=== PATIENT | female | born 1965 | race Caucasian/White ===

== ENCOUNTER 2017-01-10 08:47 | Inpatient (IN) | payer OTHER, SELFPAY ==
[2017-01-10] MEDS ORDERED: Water For Inject, Bacteriostat 0 ML ONE (08:54)
[2017-01-10] MEDS ORDERED: methylPREDNISolone Sod Succ/PF 125 MG/2 ML VIAL ONE (08:54)
[2017-01-10] MEDS ORDERED: Magnesium Sulfate 2 GM/100 ML BAG ONE (08:58)
[2017-01-10] MEDS ORDERED: Dexamethasone 4 mg/ml Vial ONE (08:58)
[2017-01-10 09:08] LABS: Oxyhemoglobin 95.1 % (94.0-97.0); Sodium 140 mmol/L (135-148)
[2017-01-10 09:10] LABS: #Basophils 0.1 thou/uL (0.0-0.2); #Eosinphils 0.5 thou/uL (0.0-0.7); #Lymphocytes 1.6 thou/uL (1.20-3.40); #Monocytes 0.5 thou/uL (0.11-0.59); #Neutrophils 4.1 thou/uL (1.40-6.50); %Basophils 0.7 % (0.0-1.0); %Eosinophils 7.8 % (0.0-10.0); %Lymphocytes 23.5 % (21.0-51.0); %Monocytes 7.6 % (0.0-10.0); Hematocrit 49.8 % (36.0-47.0); Mean Platelet Volume 8.6 fL (7.4-10.4); Red Blood Cell (RBC) Count 5.46 mill/uL (4.20-5.40); White Blood Cell (WBC) Count 6.8 thou/uL (4.8-10.8)
[2017-01-10 09:11] LABS: Mode BI-PAP; Pressure Support 6 cmH2O; Vent NO
[2017-01-10] MEDS ORDERED: Albuterol Sulfate 2.5 mg/0.5 ml Neb ONE (09:12)
[2017-01-10 09:17] LABS: PTT 26.9 SEC (22.9-36.1); Prothrombin Time 12.8 SEC (12.0-14.7)
[2017-01-10 09:30] LABS: ALT (SGPT) 10 U/L (8-55); AST (SGOT) 13 U/L (5-34); Alkaline Phosphatase 101 U/L (40-150); Anion Gap 14 mmol/L (10-20); BUN (Urea Nitrogen) 9 mg/dL (9.8-20.1); Bilirubin, Total 0.4 mg/dL (0.2-1.2); CK (CPK) 98 U/L (29-168); Calc. Creatinine Clearance 0 mL/min (70-130); Calcium 10.1 mg/dL (7.8-10.44); Carbon Dioxide 23 mmol/L (22-29); Chloride 104 mmol/L (98-107); Estimated GFR-MDRD 80; Globulin 3.5 g/dL (2.4-3.5); Lipase 24 U/L (8-78); Protein, Total 7.8 g/dL (6.0-8.3)
[2017-01-10] MEDS ORDERED: Lorazepam 2 MG/ML VIAL ONE (09:32)
[2017-01-10 09:33] LABS: Lactic Acid - Sepsis 1.5 mmol/L (0.5-2.2)
[2017-01-10 09:36] LABS: Troponin I Less than 0.010 ng/mL (< 0.028)
--- NOTE | 2017-01-10 09:37 | RAD ---
CHEST 1 VIEW: HISTORY: Dyspnea. COMPARISON: 09/18/16. FINDINGS: Cardiac silhouette is magnified by projection. Pulmonary vasculature is unremarkable. Calcified gr anulomata are consistent with healed granulomatous disease. Mediastinum is midline. There is no co nfluent airspace consolidation or evidence of pneumothorax. cafeteria monitor leads overlie the chest . IMPRESSION: No active cardiopulmonary abnormalities are demonstrated. POS: [facility]
[2017-01-10] MEDS ORDERED: Acetaminophen 325 MG TAB PO PRN (10:26)
[2017-01-10] MEDS ORDERED: Ondansetron HCl/PF 4 MG/2 ML Vial IVP PRN (10:26)
[2017-01-10] MEDS ORDERED: CCU Electrolyte Replacement 1 EACH IVPB ONE (10:26)
[2017-01-10] MEDS ORDERED: Bisacodyl 5 MG TAB PO PRN (10:26)
[2017-01-10] MEDS ORDERED: Potassium Chloride 40 MEQ in Premix Bag 1 BAG IVPB PRN (10:46)
[2017-01-10] MEDS ORDERED: Potassium Phosphate 9 MMOL in Sodium Chloride 0.9% 100 ML IVPB PRN (10:46)
[2017-01-10] MEDS ORDERED: Potassium Phosphate 12 MMOL in Sodium Chloride 0.9% 250 ML 250 ML IV PRN (10:46)
[2017-01-10] MEDS ORDERED: Magnesium 2 GM/NS 0.9% 100 ML 2 GM in Premix Bag 1 BAG IVPB PRN (10:46)
[2017-01-10] MEDS ORDERED: Potassium Chloride 40 MEQ in Sodium Chloride 0.9% 250 ML 250 ML IVPB PRN (10:46)
[2017-01-10] MEDS ORDERED: Magnesium Oxide 400 MG TAB PO PRN ×2 (10:46)
[2017-01-10] MEDS ORDERED: Potassium Phosphate 15 MMOL in Sodium Chloride 0.9% 250 ML 250 ML IV PRN (10:46)
[2017-01-10] MEDS ORDERED: CCU ELECTROLYTE REPLACEMENT PROTOCOL FS PRN (10:46)
[2017-01-10] MEDS ORDERED: Potassium Chloride 20 MEQ TAB PO PRN (10:46)
--- NOTE | 2017-01-10 11:19 | HP ---
PRIMARY CARE PROVIDER: Dr. Ana M Mcclendon. CHIEF COMPLAINT: Shortness of breath. HISTORY OF PRESENT ILLNESS: Ms. Yee is a pleasant 51-year-old lady who was seen at [facility] on 01/10/2017. She has a history of COPD. She reports progressively worseni ng shortness of breath, which started about 5 days ago. She reports cough that is productive of yel lowish to brown sputum. She also thinks she may have fevers, but is unsure. She denies any nausea, vomiting, or diarrhea. She reports chest tightness. She denies any headaches. She denies any sic k contacts. REVIEW OF SYSTEMS: The following complete review of systems was negative, unless otherwise mentione d in the HPI or below: Constitutional: Weight loss or gain, sense of well-being, ability to conduct usual activities, exer cise tolerance. Skin/Breast: Rash, itching, changes in hair growth or loss, nail changes, breast lumps, tenderness, swelling, nipple discharge. Eyes: Vision, double vision, tearing, blind spots, pain. ENT/Mouth: Headaches (location, time of onset, duration, precipitating factors), vertigo, lighthead edness, injury. Vision, double vision, tearing, blind spots, pain, nose bleeding, colds, obstruction , discharge, dental difficulties, gingival bleeding, dentures, neck stiffness, pain, tenderness, mas ses in thyroid or other areas. Cardiovascular: Precordial pain, substernal distress, palpitations, syncope, dyspnea on exertion, o rthopnea, nocturnal paroxysmal dyspnea, edema, cyanosis, hypertension, heart murmurs, varicosities, phlebitis, claudication. Respiratory: Pain, shortness of breath, wheezing, stridor, cough, hemoptysis, fever or night sweats . Gastrointestinal: Poor appetite, dysphagia, indigestion, abdominal pain, heartburn, eructation, lianna sea, vomiting, hematemesis, jaundice, constipation, or diarrhea, abnormal stools (lurdes-colored, kanchan y, bloody, greasy, foul smelling), flatulence, hemorrhoids, recent changes in bowel habits. Genitourinary: Urgency, frequency, dysuria, nocturia, hematuria, polyuria, oliguria, unusual (or ch aleshia in) color of urine, stones, hesitancy, change in size of stream, dribbling, acute retention or incontinence, libido, potency. Musculoskeletal: Pain, swelling, redness or heat of muscles or joints, limitation, of motion, muscu lar weakness, atrophy, cramps. Neurologic/Psychiatric: Convulsions, paralyses, tremor, incoordination, paresthesias, difficulties with memory of speech, sensory or motor disturbances, or muscular coordination (ataxia, tremor), emo tional problems, anxiety, depression, previous psychiatric care, unusual perceptions, hallucinations . Allergy/Immunologic: Skin rash, anemia, bleeding tendency, polydipsia, polyuria, intolerance to hea t or cold. 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 PAST SURGICAL HISTORY: Significant for aortobifemoral bypass graft in 07/2016. SOCIAL HISTORY: Patient smokes 1 pack of cigarettes a day. She drinks 3-4 beers on a daily basis. FAMILY HISTORY: She denies any family history of COPD. ALLERGIES: No known drug allergies. CURRENT MEDICATIONS: The patient does not recall the names of her medications. In the past, she wa s on aspirin, furosemide, Protonix, potassium chloride, Norvasc, Wellbutrin and tramadol. PHYSICAL EXAMINATION: GENERAL: Ms. Yee is awake and alert, in moderate respiratory distress. VITAL SIGNS: She has a blood pressure of 160/94, pulse 90, respiratory rate 22, and oxygen saturati on 100% on bilevel positive airway pressure. She is afebrile. EYES: No scleral icterus, no conjunctival pallor. ENT: Moist mucosal membranes, no oropharyngeal erythema or exudate. NECK: Supple, nontender, accessory muscles of breathing are active. Trachea is midline. No thyrom egaly. RESPIRATORY: Accessory muscles of breathing are active. Chest wall movements are symmetric bilater ally. Markedly diminished breath sounds at both bases. No wheezes, rhonchi or crepitations. CARDIOVASCULAR: S1, S2 are heard, regular. Peripheral pulses palpable. No carotid bruit, no peric ardial rub. ABDOMEN: Soft, nontender, bowel sounds heard, no hepatomegaly, no splenomegaly. NEUROLOGIC: Cranial nerves II through XII are intact. Deep tendon reflexes 2+. SKIN: No rashes or subcutaneous nodules. LYMPHATIC: No cervical lymphadenopathy. MUSCULOSKELETAL: Power is 5/5 in all 4 extremities, normal range of movement at all major extremity joints. PSYCHIATRIC: The patient appears anxious, oriented to person, place, and time. LABORATORY DATA AND IMAGING: Ms. Yee's labs and investigations were reviewed. I reviewed her electrocardiogram, which shows sinus tachycardia, no ST changes to suggest an acute coronary syndrom e. I also reviewed her chest x-ray, which does not show any pulmonary infiltrates. She has a shawn l white count, elevated hemoglobin of 16.2, normal platelet count, INR 1.0, normal electrolytes, no rmal creatinine, normal liver function tests, BNP of 27 and normal troponin I. Lactic acid is 1.5. Arterial blood gases show pH of 7.41, pCO2 of 38.6 and pO2 158.3. ASSESSMENT AND PLAN: Ms. Yee is a pleasant 51-year-old lady who was seen at [facility]. Her problem list includes: 1. Acute on chronic respiratory failure: Most likely secondary to chronic obstructive pulmonary di sease exacerbation. She will be admitted to the hospital to the IMCU unit. Pulmonology service has being consulted. 2. Chronic obstructive pulmonary disease exacerbation: She will be treated with oxygen, steroids, bronchodilators and antibiotics. 3. Tobacco abuse: Patient has been counseled regarding tobacco cessation. We will start her on ni cotine replacement therapy. 4. Alcohol abuse: Patient has been counseled regarding moderation of alcohol use. She will be sta rted on ASE protocol. 5. Polycythemia: Likely secondary to tobacco use. We will recheck her hemoglobin. I should note that her hemoglobin was normal to low in the past. 6. Hypertension: Once her home medications are clarified, she will be started on home medications. Vital signs will be checked and antihypertensives titrated as needed. 7. Peripheral vascular disease: Appears stable. Many thanks for allowing me to participate in your patient's care. Please feel free to contact me w ith any questions or concerns. LEVEL OF RISK: High. LEVEL OF COMPLEXITY: High.
[2017-01-10 11:22] LABS: Bilirubin Negative (Negative); Blood, Urine Negative (Negative); Glucose, Urine (Dipstick) Negative (Negative); Ketone, Urine Negative (Negative); Nitrite Negative (Negative); Protein, Urine (Dipstick) Negative (Neg-Trace); Urobilinogen 0.2 mg/dL (0.2-1.0)
[2017-01-10] MEDS ORDERED: FLU VACC QS2017-18 36 mo. & older 0.5 ML SYRINGE IM ONE (15:00)
--- NOTE | 2017-01-10 19:01 | CON ---
DATE OF CONSULTATION: 01/10/2017 HISTORY OF PRESENT ILLNESS: Linda Yee is a 51-year-old female with a history of chronic obstru ctive pulmonary disease. Her father has recently been sick with a cough and green sputum for 3 week s. She says several people that have come into store have claimed that they recently had walking pn eumonia. She reached a point where she could not speak in complete sentences, presented to the emergency room , was noninvasively ventilated. She says she is better but not back to her baseline but is also asking when she could go home. Unfo rtunately, she is still smoking. PAST MEDICAL HISTORY: 1. Remarkable for mesenteric ischemia. 2. History of an aortic occlusion below the renal artery with an aortobifemoral bypass as I recall in early 2016. SOCIAL HISTORY: She drinks 3-4 beers a day and smokes a pack a day. FAMILY HISTORY: Negative for lung disease at an early age. ALLERGIES: She has no reported drug allergies. MEDICATIONS: She is supposed to be on aspirin, Lasix, Protonix, potassium, Norvasc, Wellbutrin, tra madol. She said when she feels well, she can walk as far as she wants without any shortness of breath. PHYSICAL EXAMINATION: GENERAL: She is in no distress. VITAL SIGNS: She is afebrile, heart rate is 99, respiratory rate is 22, oximetry is 93 on 2 liters, blood pressure 97/60. HEAD AND NECK: Unremarkable. LUNGS: Remarkable for diffuse wheezes with a prolonged expiratory phase, speaking in full sentence now. HEART: Regular rhythm. ABDOMEN: Soft and nontender. EXTREMITIES: Without asymmetry. LABORATORY DATA: White count 6.8, hemoglobin 16.2, platelets 200,000. Electrolytes are normal. IMPRESSION: Chronic obstructive pulmonary disease exacerbation. PLAN: Steroids, nebulizer treatments, p.o. antibiotics would be reasonable.
[2017-01-10] MEDS: Nicotine 21 MG PATCH TD SCH (20:27)
[2017-01-11 06:04] LABS: Band 13 % (5-11); Hematocrit 44.5 % (36.0-47.0); Mean Platelet Volume 9.1 fL (7.4-10.4); Neutrophil 85 % (42-75); Red Blood Cell (RBC) Count 4.84 mill/uL (4.20-5.40); White Blood Cell (WBC) Count 16.7 thou/uL (4.8-10.8)
[2017-01-11 06:10] LABS: Anion Gap 12 mmol/L (10-20); BUN (Urea Nitrogen) 13 mg/dL (9.8-20.1); Calc. Creatinine Clearance 59 mL/min (70-130); Calcium 9.5 mg/dL (7.8-10.44); Carbon Dioxide 24 mmol/L (22-29); Chloride 106 mmol/L (98-107); Estimated GFR-MDRD 73
[2017-01-11] MEDS: Enoxaparin Sodium 40 MG/0.4 ML SYRINGE SC SCH (08:15)
--- NOTE | 2017-01-11 10:38 | PDOC.PN ---
- Subjective Encounter Start Date: 01/11/17 Encounter Start Time: 07:40 Pt seen for followup re: acute on chronic respiratory failure. Feels better. No chest pain. Dyspnea is better. No nausea or vomiting. - Objective MAR Reviewed: Yes Vital Signs & Weight: Vital Signs (12 hours) Temp Pulse Resp BP BP Pulse Ox 01/11/17 10:16 93 16 01/11/17 08:00 98.0 F 91 22 H 113/52 L 96 01/11/17 07:50 98.0 F 83 16 98 01/11/17 06:44 98 01/11/17 06:43 83 16 01/11/17 04:15 95 01/11/17 04:00 98.0 F 77 16 97/46 L 97/46 L 100 01/11/17 00:00 85 18 110/69 110/69 94 L 01/10/17 22:51 96 Weight Weight 103 lb 6.4 oz I&O: 01/10/17 01/11/17 01/12/17 06:59 06:59 06:59 Intake Total 1360 Output Total 1100 Balance 260 Result Diagrams: 01/11/17 05:01 01/11/17 05:01 EKG Reviewed by me: Yes (Tele: sinus tachycardia) Phys Exam - Physical Examination Constitutional: NAD HEENT: moist MMs, oral pharynx no lesions Neck: supple Respiratory: no wheezing, no rales, no rhonchi, clear to auscultation bilateral Diminished air entry sabi bases Cardiovascular: RRR, no rub Gastrointestinal: soft, positive bowel sounds Musculoskeletal: pulses present Neurological: non-focal, moves all 4 limbs Lymphatic: no nodes Psychiatric: normal affect, A&O x 3 Skin: no rash, normal turgor, cap refill <2 seconds Dx/Plan (1) Acute and chronic respiratory failure Code(s): J96.20 - ACUTE AND CHR RESP FAILURE, UNSP W HYPOXIA OR HYPERCAPNIA Status: Acute (2) COPD exacerbation Code(s): J44.1 - CHRONIC OBSTRUCTIVE PULMONARY DISEASE W (ACUTE) EXACERBATION Status: Acute (3) Dyslipidemia Code(s): E78.5 - HYPERLIPIDEMIA, UNSPECIFIED Status: Chronic (4) Hypertension Code(s): I10 - ESSENTIAL (PRIMARY) HYPERTENSION Status: Chronic (5) Tobacco abuse Code(s): Z72.0 - TOBACCO USE Status: Chronic - Plan continue antibiotics, PT/OT, out of bed/ambulate, DVT proph w/lovenox * . Pt on O2 by nasal cannula. Continue steroids, bronchodilators. Change antibiotics to oral. Monitor vital signs and titrate antihypertensives as needed. Continue nicotine replacement therapy. Review of Systems - Review of Systems Constitutional: negative: Fever, Chills, Sweats, Weakness, Malaise Respiratory: Cough, SOB with Excertion. negative: Dry, Shortness of Breath, Hemoptysis, Pleuritic Pain, Sputum, Wheezing Cardiovascular: negative: Chest Pain, Palpitations, Orthopnea, Paroxysmal Noc. Dyspnea, Edema, Light Headedness Gastrointestinal: negative: Nausea, Vomiting, Abdominal Pain, Diarrhea, Constipation, Melena, Hematochezia Genitourinary: negative: Dysuria, Frequency, Incontinence, Hematuria, Retention - Medications/Allergies Allergies/Adverse Reactions: Allergies Allergy/AdvReac Type Severity Reaction Status Date / Time cyclobenzaprine AdvReac Verified 01/10/17 12:28 [facility] Medications: Current Medications Acetaminophen (Tylenol) 650 mg PO Q4H PRN PRN Reason: Headache/Fever or Pain Albuterol/Ipratropium (Duoneb) 3 ml NEB [id number] PRN PRN Reason: SOB &/or Wheezing Albuterol/Ipratropium (Duoneb) 3 ml NEB [id number] [facility] Last Admin: 01/11/17 10:16 Dose: 3 ml Bisacodyl (Dulcolax) 10 mg PO DAILYPRN PRN PRN Reason: Constipation Enoxaparin Sodium (Lovenox) 40 mg SC 0900 [facility] Last Admin: 01/11/17 08:15 Dose: Not Given Potassium Chloride 40 meq/ (Sodium Chloride) 270 mls @ 135 mls/hr IVPB ASDIR PRN PRN Reason: FOR SERUM K+ 2.5 - 3.5 Potassium Chloride 40 meq/ (Device) 100 mls @ 50 mls/hr IVPB ASDIR PRN PRN Reason: FOR SERUM K+ 2.5 - 3.5 Magnesium Sulfate 1 gm/ Sodium (Chloride) 102 mls @ 102 mls/hr IV PRN PRN PRN Reason: MAG LEVEL 1.4 - 2.0 Magnesium Sulfate 2 gm/ Device 100 mls @ 100 mls/hr IVPB ASDIR PRN PRN Reason: MAGNESIUM < 1.4 Potassium Phosphate 9 mmol/ (Sodium Chloride) 103 mls @ 25.75 mls/hr IVPB ASDIR PRN PRN Reason: Phosphate 1.0-1.8 Potassium Phosphate 12 mmol/ (Sodium Chloride) 254 mls @ 63.5 mls/hr IV ASDIR PRN PRN Reason: Serum phosphate 0.5-0.9 Potassium Phosphate 15 mmol/ (Sodium Chloride) 255 mls @ 63.75 mls/hr IV ASDIR PRN PRN Reason: Serum Phos < 0.5 Levofloxacin (Levaquin) 750 mg PO 0600 [facility] Magnesium Oxide (Magnesium Oxide) 400 mg PO BIDPRN PRN PRN Reason: FOR SERUM MAG 1.4 - 2.0 Magnesium Oxide (Magnesium Oxide) 800 mg PO PRN PRN PRN Reason: FOR SERUM MAG < 1.4 Methylprednisolone Sodium Succinate (Solu-Medrol) 40 mg IVP Q6HR [facility] Last Admin: 01/11/17 05:39 Dose: 40 mg Miscellaneous Medication (Phos-Nak) 1 pkt PO TIDPRN PRN PRN Reason: FOR PHOS LEVEL 1.0 - 1.8 Miscellaneous Medication (Phos-Nak) 2 pkt PO TIDPRN PRN PRN Reason: FOR PHOS LEVEL 0.5 - 1.0 Nicotine (Nicoderm Patch) 21 mg TD Q24HR [facility] Last Admin: 01/10/17 20:27 Dose: Not Given Ccu Electrolyte (Replacement Protocol) 0 each FS PRN PRN PRN Reason: FOR ELECTROLYTE REPLACEMENT Ondansetron HCl (Zofran) 4 mg IVP Q6H PRN PRN Reason: Nausea/Vomiting Potassium Chloride (K-Dur) 40 meq PO ASDIR PRN PRN Reason: FOR SERUM K+ 2.5 - 3.5 Potassium Chloride (Klor-Con) 40 meq PER TUBE ASDIR PRN PRN Reason: FOR SERUM K+ 2.5-3.5
--- NOTE | 2017-01-11 16:53 | PRG ---
DATE OF SERVICE: 01/11/2017 SUBJECTIVE: Linda Yee feels much better today. She is approaching her baseline. OBJECTIVE: VITAL SIGNS: She is afebrile, heart rate in the 80s, respiratory rate 17, oximetry is 96 on 2 liter s, blood pressure 100/52. LUNGS: Clear. HEART: Regular rhythm. ABDOMEN: Soft. LABORATORY DATA: White count 16.7, hemoglobin 14.3, platelets 185. Electrolytes are normal. IMPRESSION: Chronic obstructive pulmonary disease/reactive airways exacerbation. She is stable to be switched to p.o. antimicrobial therapy and her IV steroid dose has been decreased. She can move to a medical bed. She will see Dr. Sifuentes in the morning as she has seen in the past.
[2017-01-11] MEDS: Nicotine 21 MG PATCH TD SCH (19:52)
[2017-01-12 05:06] LABS: #Lymphocytes 0.4 thou/uL (1.20-3.40); #Monocytes 0.3 thou/uL (0.11-0.59); #Neutrophils 13.3 thou/uL (1.40-6.50); %Basophils 0.1 % (0.0-1.0); %Eosinophils 0.1 % (0.0-10.0); %Lymphocytes 3.2 % (21.0-51.0); %Monocytes 2.1 % (0.0-10.0); Hematocrit 44.6 % (36.0-47.0); Mean Platelet Volume 9.5 fL (7.4-10.4); Red Blood Cell (RBC) Count 4.84 mill/uL (4.20-5.40)
[2017-01-12 05:16] LABS: Anion Gap 12 mmol/L (10-20); BUN (Urea Nitrogen) 12 mg/dL (9.8-20.1); Calc. Creatinine Clearance 70 mL/min (70-130); Calcium 9.7 mg/dL (7.8-10.44); Carbon Dioxide 22 mmol/L (22-29); Chloride 107 mmol/L (98-107); Estimated GFR-MDRD 89
[2017-01-12 05:28] VITALS: BMI 20.5
[2017-01-12] MEDS: Enoxaparin Sodium 40 MG/0.4 ML SYRINGE SC SCH (08:12)
--- NOTE | 2017-01-12 10:44 | PDOC.PN ---
- Subjective Encounter Start Date: 01/12/17 Encounter Start Time: 07:20 Pt seen for followup re: COPD exacerbation. Says she feels better. Still has cough, sputum, no chest pain. SOBOE+. - Objective MAR Reviewed: Yes Vital Signs & Weight: Vital Signs (12 hours) Temp Pulse Resp BP BP Pulse Ox 01/12/17 09:38 91 16 94 L 01/12/17 08:00 98.1 F 98 20 113/72 94 L 01/12/17 06:39 85 16 94 L 01/12/17 04:00 97.8 F 88 20 129/74 96 01/12/17 03:37 116/68 01/12/17 02:55 94 L 01/12/17 00:00 98.3 F 84 18 113/66 95 Weight Weight 101 lb 11.011 oz I&O: 01/11/17 01/12/17 01/13/17 06:59 06:59 06:59 Intake Total 1360 300 Output Total 1100 Balance 260 300 Result Diagrams: 01/12/17 03:59 01/12/17 03:59 Phys Exam - Physical Examination Constitutional: NAD HEENT: moist MMs Neck: supple Respiratory: clear to auscultation bilateral Cardiovascular: RRR, no rub Gastrointestinal: soft, positive bowel sounds Musculoskeletal: pulses present Psychiatric: normal affect Dx/Plan (1) COPD exacerbation Code(s): J44.1 - CHRONIC OBSTRUCTIVE PULMONARY DISEASE W (ACUTE) EXACERBATION Status: Acute (2) Dyslipidemia Code(s): E78.5 - HYPERLIPIDEMIA, UNSPECIFIED Status: Chronic (3) Hypertension Code(s): I10 - ESSENTIAL (PRIMARY) HYPERTENSION Status: Chronic (4) Tobacco abuse Code(s): Z72.0 - TOBACCO USE Status: Chronic (5) Acute and chronic respiratory failure Code(s): J96.20 - ACUTE AND CHR RESP FAILURE, UNSP W HYPOXIA OR HYPERCAPNIA Status: Resolved - Plan continue antibiotics, DVT proph w/lovenox * . Continue steroids, antibiotics, bronchodilators, O2 PRN (not needing oxygen at this time). Ambulate pt. Continue nicotine replacement therapy. Review of Systems - Review of Systems Constitutional: negative: Fever, Chills, Sweats, Weakness, Malaise Respiratory: Cough, SOB with Excertion, Sputum. negative: Dry, Shortness of Breath, Hemoptysis, Pleuritic Pain, Wheezing Cardiovascular: negative: Chest Pain, Palpitations, Orthopnea, Paroxysmal Noc. Dyspnea, Edema, Light Headedness Gastrointestinal: negative: Nausea, Vomiting, Abdominal Pain, Diarrhea, Constipation, Melena, Hematochezia - Medications/Allergies Allergies/Adverse Reactions: Allergies Allergy/AdvReac Type Severity Reaction Status Date / Time cyclobenzaprine AdvReac Verified 01/10/17 12:28 [facility] Medications: Current Medications Acetaminophen (Tylenol) 650 mg PO Q4H PRN PRN Reason: Headache/Fever or Pain Albuterol/Ipratropium (Duoneb) 3 ml NEB [id number] PRN PRN Reason: SOB &/or Wheezing Albuterol/Ipratropium (Duoneb) 3 ml NEB [id number] [facility] Last Admin: 01/12/17 09:38 Dose: 3 ml Bisacodyl (Dulcolax) 10 mg PO DAILYPRN PRN PRN Reason: Constipation Enoxaparin Sodium (Lovenox) 40 mg SC 0900 [facility] Last Admin: 01/12/17 08:12 Dose: Not Given Potassium Chloride 40 meq/ (Sodium Chloride) 270 mls @ 135 mls/hr IVPB ASDIR PRN PRN Reason: FOR SERUM K+ 2.5 - 3.5 Potassium Chloride 40 meq/ (Device) 100 mls @ 50 mls/hr IVPB ASDIR PRN PRN Reason: FOR SERUM K+ 2.5 - 3.5 Magnesium Sulfate 1 gm/ Sodium (Chloride) 102 mls @ 102 mls/hr IV PRN PRN PRN Reason: MAG LEVEL 1.4 - 2.0 Magnesium Sulfate 2 gm/ Device 100 mls @ 100 mls/hr IVPB ASDIR PRN PRN Reason: MAGNESIUM < 1.4 Potassium Phosphate 9 mmol/ (Sodium Chloride) 103 mls @ 25.75 mls/hr IVPB ASDIR PRN PRN Reason: Phosphate 1.0-1.8 Potassium Phosphate 12 mmol/ (Sodium Chloride) 254 mls @ 63.5 mls/hr IV ASDIR PRN PRN Reason: Serum phosphate 0.5-0.9 Potassium Phosphate 15 mmol/ (Sodium Chloride) 255 mls @ 63.75 mls/hr IV ASDIR PRN PRN Reason: Serum Phos < 0.5 Levofloxacin (Levaquin) 750 mg PO 0600 [facility] Last Admin: 01/12/17 06:12 Dose: 750 mg Magnesium Oxide (Magnesium Oxide) 400 mg PO BIDPRN PRN PRN Reason: FOR SERUM MAG 1.4 - 2.0 Magnesium Oxide (Magnesium Oxide) 800 mg PO PRN PRN PRN Reason: FOR SERUM MAG < 1.4 Methylprednisolone Sodium Succinate (Solu-Medrol) 20 mg IVP Q6HR [facility] Last Admin: 01/12/17 06:12 Dose: 20 mg Miscellaneous Medication (Phos-Nak) 1 pkt PO TIDPRN PRN PRN Reason: FOR PHOS LEVEL 1.0 - 1.8 Miscellaneous Medication (Phos-Nak) 2 pkt PO TIDPRN PRN PRN Reason: FOR PHOS LEVEL 0.5 - 1.0 Nicotine (Nicoderm Patch) 21 mg TD Q24HR [facility] Last Admin: 01/11/17 19:52 Dose: Not Given Ccu Electrolyte (Replacement Protocol) 0 each FS PRN PRN PRN Reason: FOR ELECTROLYTE REPLACEMENT Ondansetron HCl (Zofran) 4 mg IVP Q6H PRN PRN Reason: Nausea/Vomiting Potassium Chloride (K-Dur) 40 meq PO ASDIR PRN PRN Reason: FOR SERUM K+ 2.5 - 3.5 Potassium Chloride (Klor-Con) 40 meq PER TUBE ASDIR PRN PRN Reason: FOR SERUM K+ 2.5-3.5
[2017-01-12] MEDS ORDERED: methylPREDNISolone 4 mg Tablet PO SCH ×2 (15:45→17:00)
--- NOTE | 2017-01-12 17:39 | PRG ---
DATE OF SERVICE: 01/12/2017 SERVICE: Pulmonary Medicine. INTERVAL HISTORY: The patient is doing great from a cardiovascular and respiratory standpoint. She denies any current fevers, chills, nausea, vomiting or shortness of breath. She has essentially re turned to her usual state of health. She is requesting for discharge today. She has multiple home issues that she needs to get back and attend to. She says that the shortness of breath that brought her here has significantly improved and is nearing baseline. PHYSICAL EXAMINATION: VITAL SIGNS: Afebrile, pulse 83, blood pressure 128/87, respirations 16, saturation 96% on room air . GENERAL: The patient is awake and alert, in no apparent distress. LUNGS: Excellent air entry. There is minimally prolonged expiratory phase. I do not appreciate an y wheezing, rhonchi or crackles. HEART: Normal rate, regular. ABDOMEN: Soft, nontender, nondistended, bowel sounds positive. MUSCULOSKELETAL: No cyanosis or clubbing. No pitting in the bilateral lower extremities. NEUROLOGIC: Grossly nonfocal. LABORATORY DATA: WBC 14.0 and down trending, hemoglobin 14.4, platelets 165,000. INR 1.0, pH 7.41, pCO2 of 38. Basic metabolic profile is completely unremarkable. Influenza A and B is unremarkable . Blood cultures x2 are negative. Urine cultures negative at 48 hours. ASSESSMENT: 1. Chronic obstructive pulmonary disease with acute exacerbation. 2. Acute hypoxic respiratory failure, resolved. 3. Tobacco abuse, ongoing. PLAN: I have spent 5 minutes, discussing the merits of continued efforts at quitting smoking. I am going to have her return to clinic to see me in the outpatient setting. At this point, however, cecilia brennan is stable for transition out of the hospital. She needs a complete 5 days of antibiotics and 7 da ys of p.o. steroids. If she remains in house, I will continue to follow, but hopefully she will be able to go home today.
[2017-01-12 18:13] VITALS: BP 121/79; TEMP 98.2
--- NOTE | 2017-01-12 20:12 | DIS ---
DATE OF ADMISSION: 01/10/2017 DATE OF DISCHARGE: 01/12/2017 PRIMARY CARE PHYSICIAN: Ana M Mcclendon MD DISCHARGE DIAGNOSES: 1. Acute on chronic respiratory failure, resolved. 2. Chronic obstructive pulmonary disease exacerbation, improved. CONDITION OF PATIENT AT THE TIME OF DISCHARGE: Stable. I assessed Ms. Yee on the day of discharge. Please refer to my daily hospitalist's progress note for further information of this [id number] en counter. DISCHARGE MEDICATIONS: Levofloxacin 750 mg daily for 3 more days, nicotine 21 mg patch daily, Medro l Dosepak, Atrovent nebulizers p.r.n., aspirin 325 mg daily. HOSPITAL COURSE: Ms. Yee is a pleasant 51-year-old lady who was admitted to [facility] on 01/12/2017 for acute on chronic respiratory failure secondary to chronic obstruct nicholas pulmonary disease exacerbation. She was initially treated with bilevel positive airway pressure and managed in the intermediate care unit. She improved clinically and was transferred to the [facility] floor. She was seen by Pulmonology Service during this hospitalization. She is being discharge d home in a stable condition. LABORATORY DATA: On the day of discharge, Ms. Yee has a white count of 14,000, hemoglobin 14.4 , platelet count 165,000, normal electrolytes and normal creatinine. Many thanks for allowing me to participate in your patient's care. Please feel free to contact me w ith any questions or concerns. DISCHARGE DESTINATION: Home. TOTAL AMOUNT OF TIME SPENT COORDINATING THIS DISCHARGE: Thirty-three minutes. ADDENDUM Ms. Yee is being discharged home on DuoNeb 3 mL q.6 hours p.r.n. and not on ipratropium nebuliz ers.
--- NOTE | 2017-01-13 06:41 | EKG ---
Test Reason : SOB Blood Pressure : / mmHG Vent. Rate : 103 BPM Atrial Rate : 103 BPM P-R Int : 140 ms QRS Dur : 060 ms QT Int : 312 ms P-R-T Axes : 077 078 059 degrees QTc Int : 408 ms Sinus tachycardia Biatrial enlargement Septal infarct , age undetermined Abnormal ECG Confirmed by ANGEL MARY, CRISPIN ([id number]), make up editor MARCK GROVES ([id number]) on 01/13/2017 6:41:06 AM Referred By: Confirmed By:CRISPIN ORTIZ MD
[2017-01-13] MEDS ORDERED: predniSONE 20 MG TAB PO SCH (08:00)
[2017-01-13] MEDS ORDERED: methylPREDNISolone 4 mg Tablet PO SCH ×2 (08:00→21:00)
[2017-01-14] MEDS ORDERED: methylPREDNISolone 4 mg Tablet PO SCH (08:00)
[2017-01-15] MEDS ORDERED: methylPREDNISolone 4 mg Tablet PO SCH (08:00)
[2017-01-16] MEDS ORDERED: methylPREDNISolone 4 mg Tablet PO SCH (08:00)
[2017-01-17] MEDS ORDERED: methylPREDNISolone 4 mg Tablet PO SCH (08:00)
== END 2017-01-12 18:12 | disposition home or self-care (01) | DRG 190 ==
LOC: ERS 08:47 → IMCU/EMU 12:16 → T4-B 01-11 17:28
PROVIDERS: ADMIT Emergency Medicine; ATTEND Internal Medicine
PROC: 5A09357 Assistance with Respiratory Ventilation, Less than 24 Consecutive Hours, Continuous Positive Airway Pressure (ICD-10-PCS; principal; 2017-01-10)
DX: J44.1 Chronic obstructive pulmonary disease with (acute) exacerbation (principal); J96.21 Acute and chronic respiratory failure with hypoxia; F17.210 Nicotine dependence, cigarettes, uncomplicated; D75.1 Secondary polycythemia; I10 Essential (primary) hypertension; I73.9 Peripheral vascular disease, unspecified; Z95.828 Presence of other vascular implants and grafts; Z23 Encounter for immunization; F10.10 Alcohol abuse, uncomplicated; E78.5 Hyperlipidemia, unspecified
CPT/HCPCS: 36415; 71010; 80048; 80053; 81003; 82553; 82805; 83605; 83690; 83880; 84484; 85025; 85610; 85730; 87040; 87086; 93005; 94640; 94644; 94660; 96361; 96365; 96366; 96375; J1100; J1650; J1956; J2060; J2920; J2930; J3475; J7611; J7620

== ENCOUNTER 2017-04-07 16:56 | Emergency (ER) | payer OTHER ==
--- NOTE | 2017-04-07 18:44 | RAD ---
RADIOGRAPH CHEST 2 VIEWS: 04/07/17 HISTORY: 51-year-old female with cough and dyspnea. FINDINGS: There is no air space density, pulmonary edema, pleural effusion, pneumothorax, or cardiomegaly. Ther e is a levoscoliosis of the lumbar spine, and a mild compensatory dextroscoliosis of the thoracic spi ne. IMPRESSION: 1. No acute cardiopulmonary findings. 2. Mild S-shaped scoliosis. shilpa [] POS: [facility]
== END 2017-04-07 22:03 | disposition left against medical advice (07) ==
LOC: ERS 16:56
DX: Z53.21 Procedure and treatment not carried out due to patient leaving prior to being seen by health care provider (principal); J44.9 Chronic obstructive pulmonary disease, unspecified; F17.210 Nicotine dependence, cigarettes, uncomplicated
CPT/HCPCS: 71046; 94640; J7620

== ENCOUNTER 2017-05-11 19:57 | Inpatient (IN) | payer OTHER, SELFPAY ==
[2017-05-11] MEDS ORDERED: Dexamethasone 10 MG/ML VIAL ONE (20:17)
[2017-05-11] MEDS ORDERED: Lorazepam 2 MG/ML VIAL ONE (20:17)
[2017-05-11] MEDS ORDERED: Albuterol Sulfate 2.5 mg/3 ml Neb ONE (20:22)
[2017-05-11 20:26] LABS: #Basophils 0.1 thou/uL (0.0-0.2); #Eosinphils 0.3 thou/uL (0.0-0.7); #Lymphocytes 1.2 thou/uL (1.20-3.40); #Monocytes 0.9 thou/uL (0.11-0.59); #Neutrophils 7.1 thou/uL (1.40-6.50); %Basophils 0.7 % (0.0-1.0); %Eosinophils 2.7 % (0.0-10.0); %Lymphocytes 12.1 % (21.0-51.0); %Monocytes 9.4 % (0.0-10.0); %Neutrophils 75.1 % (42.0-75.0); Hemoglobin 15.3 g/dL (12.0-16.0); Mean Corpuscular HGB CONC 33.4 g/dL (32.0-36.0); Mean Corpuscular Hemoglobin 30.4 pg (27.0-31.0); Mean Platelet Volume 9.2 fL (7.4-10.4); Platelet Count 202 thou/uL (130-400); RBC Distribution Width 13.4 % (11.5-14.5); Red Blood Cell (RBC) Count 5.02 mill/uL (4.20-5.40); White Blood Cell (WBC) Count 9.5 thou/uL (4.8-10.8)
[2017-05-11 20:34] LABS: INR-International Normal Ratio 0.9; PTT 28.6 SEC (22.9-36.1); Prothrombin Time 12.7 SEC (12.0-14.7)
[2017-05-11 20:48] LABS: ALT (SGPT) 11 U/L (8-55); AST (SGOT) 19 U/L (5-34); Albumin 4.7 g/dL (3.5-5.0); Alkaline Phosphatase 118 U/L (40-150); Anion Gap 15 mmol/L (10-20); BUN (Urea Nitrogen) 6 mg/dL (9.8-20.1); Bilirubin, Total 0.2 mg/dL (0.2-1.2); CK (CPK) 129 U/L (29-168); Calc. Creatinine Clearance 0 mL/min (70-130); Carbon Dioxide 25 mmol/L (22-29); Chloride 103 mmol/L (98-107); Estimated GFR-MDRD 75; Globulin 3.4 g/dL (2.4-3.5); Glucose 96 mg/dL (70-105); Lipase 15 U/L (8-78); Protein, Total 8.1 g/dL (6.0-8.3); Sodium 139 mmol/L (136-145)
[2017-05-11 20:52] LABS: CKMB 2.3 ng/mL (0-6.6); Troponin I 0.011 ng/mL (< 0.028)
[2017-05-11 20:55] LABS: pH, Arterial 7.28 (7.35-7.45)
[2017-05-11 20:56] LABS: CO2 Tension 60.2 mmHg (35.0-45.0)
[2017-05-11 20:57] LABS: Actual Bicarbonate (HCO3a) 27.7 mEq/L (22-26); Base Excess (BEa) -0.4 mEq/L (0 (+/-) 2.5); Hematocrit-ABG 45.7 % (36.0-47.0); O2 Tension (PaO2) 38.3 mmHg (80.0-100.0)
[2017-05-11 20:58] LABS: Analyzer IN Cardio ER; Calcium, Ionized 1.2 mmol/L (1.12-1.30); Puncture Site RRA
[2017-05-11] MEDS ORDERED: Magnesium 2 GM/NS 0.9% 100 ML 2 GM in Premix Bag 1 BAG IVPB SCH (21:45)
--- NOTE | 2017-05-11 21:58 | RAD ---
PORTABLE CHEST: History: Chest pain Comparison: 01-10-17 FINDINGS: Lungs are clear. Heart and mediastinum unremarkable. Vascular markings normal. IMPRESSION: No acute finding. POS: [facility]
[2017-05-11 22:55] LABS: Bilirubin Negative (Negative); Blood, Urine Negative (Negative); Clarity CLEAR (Clear); Glucose, Urine (Dipstick) Negative (Negative); Leukocyte Negative (Negative); Nitrite Negative (Negative); Protein, Urine (Dipstick) Negative (Neg-Trace); Specific Gravity, Urine 1.013 (1.002-1.036); Urobilinogen 0.2 mg/dL (0.2-1.0)
[2017-05-12] MEDS ORDERED: Acetaminophen 325 MG TAB PO PRN (01:07)
[2017-05-12] MEDS ORDERED: Senokot 8.6 MG TAB PO PRN (01:07)
[2017-05-12] MEDS ORDERED: Guaifenesin DM 100-10/5 ML UDCUP PO PRN (01:07)
[2017-05-12 02:29] VITALS: BMI 21.0
--- NOTE | 2017-05-12 02:37 | HP ---
REASON FOR ADMISSION: Acute respiratory failure with hypoxia and hypercarbia and chronic obstructive pulmonary disease exacerbation. HISTORY OF PRESENT ILLNESS: The patient gives history of going to her parents place to celebrate their birthday. This was on Thursday. She got exposed to cold, as she was outside. She felt feverish and started to have shortness of breath. This has been gradually getting worse. Despite all this, she went to work yesterday morning. Her shortness of breath got worse and patient finally made it to the emergency room. Has expectoration of cough with dark yellow sputum. The patient says she normally uses her nebulizer twice daily. She has taken a flu shot for this year. The patient admits to smoking 1 pack a day and abusing marijuana as well. PAST MEDICAL AND SURGICAL HISTORY: History of COPD and follows up with Dr. Sifuentes, dyslipidemia, back surgery, peripheral vascular disease with fem-pop in 07/2016, bowel resection due to obstruction. CURRENT MEDICATIONS: The patient does not recall any of the exact names of her medications, but knows she takes baby aspirin, a cholesterol medication, an inhaler, and nebulizer. We will try to ascertain the names of these medications in the morning. ALLERGIES: She is allergic to FLEXERIL. PERSONAL HISTORY: Smokes 1 pack per day, abuses marijuana and drinks on social occasions. 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 FAMILY HISTORY: Both parents are living and are cancer survivors. Mother has had history of lymph node cancer and father has prostate cancer. REVIEW OF SYSTEMS: The following complete review of systems was negative, unless otherwise mentioned in the HPI or below: Constitutional: Weight loss or gain, ability to conduct usual activities. Skin: Rash, itching. Eyes: Double vision, pain. ENT/Mouth: Nose bleeding, neck stiffness, pain, tenderness. Cardiovascular: Palpitations, dyspnea on exertion, orthopnea. Respiratory: Shortness of breath, wheezing, cough, hemoptysis, fever, or night sweats. Gastrointestinal: Poor appetite, abdominal pain, heartburn, nausea, vomiting, constipation, or diarrhea. Genitourinary: Urgency, frequency, dysuria, nocturia. Musculoskeletal: Pain, swelling. Neurologic/Psychiatric: Anxiety, depression. Allergy/Immunologic: Skin rash, bleeding tendency. PHYSICAL EXAMINATION: GENERAL: The patient is a 51-year-old female, who is currently on BiPAP and is comfortable. VITAL SIGNS: Blood pressure on arrival 165/84, pulse 120 per minute, respiratory rate 28 per minute, temperature 99.2 degrees Fahrenheit, saturating 88% on room air and currently 100% on BiPAP. NECK: Supple, no elevated JVD. HEENT: Extraocular muscles intact. Pupils reacting to light. Oral cavity, mucous membranes are moist. No exudates or congestion. CARDIOVASCULAR SYSTEM: S1, S2 heard. Regular rhythm. RESPIRATORY SYSTEM: Air entry 1+ bilateral. Scattered wheezes plus bilateral. ABDOMEN: Soft. Bowel sounds heard. No tenderness, rigidity, or guarding. EXTREMITIES: No peripheral edema or calf tenderness. VASCULAR SYSTEM: Peripheral pulses 2+ bilateral, no ischemic ulcerations or gangrene. CENTRAL NERVOUS SYSTEM: No gross focal deficits seen. Patient is alert, awake , and oriented well. PSYCHIATRIC SYSTEM: The patient's mood is a bit anxious, otherwise no hallucinations or delusions. LABORATORY AND X-RAY FINDINGS: White count of 9, H and H 15 and 45, platelet count 202 with 75% neutrophils. PT, INR, PTT within normal limits. Blood gas done shows a pH of 7.28, PCO2 of 60, pO2 of 38 with a bicarbonate of 27. Electrolytes are stable. BUN 6, creatinine 0.8, serum glucose 96. Liver enzymes within normal limits. First set of cardiac enzymes are negative. BNP is 17. Lipase is 15, albumin is 4.7. Influenzae A and B antigens are negative. Chest x-ray done shows no acute infiltrate. EKG shows sinus tachycardia at 117 beats per minute. CLINICAL IMPRESSION AND PLAN: Patient will be admitted to [facility] for acute respiratory failure with hypercarbia and hypoxia, acute on chronic obstructive pulmonary disease exacerbation. She will be placed on Solu-Medrol 40 mg IV q.6 hourly, DuoNeb q.6 hourly, and empiric Levaquin. We will also continue her aspirin, nicotine patch 21 mg transdermal, and gentle hydration with normal saline at 50 mL per hour. We will consult Dr. Sifuentes, her web assistant. We will obtain a viral PCR as well to rule out viral infection preceding her chronic obstructive pulmonary disease flare-up. Patient was counseled with regarding her smoking abuse and marijuana abuse as well. Please note I have seen and examined patient on 05/11/2017. FORD
[2017-05-12 02:59] LABS: Amphetamine Not Detected (NotDetected); Barbiturates Screen Not Detected (NotDetected); Benzodiazepine Screen Not Detected (NotDetected); Cocaine Metabolite Screen Not Detected (NotDetected); Medtox Control Line Valid? VALID (VALID); Medtox Reader # READER 4; Methadone Not Detected (NotDetected); Methamphetamine Not Detected (NotDetected); Opiate Screen Detected (NotDetected); Oxycodone Screen Not Detected (NotDetected); Phencyclidine (PCP) Not Detected (NotDetected); THC/Cannabinoid Screen Detected (NotDetected); Tricyclic Screen Not Detected (NotDetected)
[2017-05-12] MEDS: Sodium Chloride 0.9% 1,000 ML IV SCH ×2 (04:54→21:14)
[2017-05-12] MEDS: Nicotine 21 MG PATCH TD SCH (04:54)
[2017-05-12 05:44] LABS: Anion Gap 12 mmol/L (10-20); BUN (Urea Nitrogen) 6 mg/dL (9.8-20.1); Calc. Creatinine Clearance 75 mL/min (70-130); Calcium 9.2 mg/dL (7.8-10.44); Carbon Dioxide 24 mmol/L (22-29); Chloride 106 mmol/L (98-107); Estimated GFR-MDRD Greater than 90; Glucose 145 mg/dL (70-105); Potassium 4.3 mmol/L (3.5-5.1); Sodium 138 mmol/L (136-145)
[2017-05-12 06:08] LABS: #Basophils 0.1 thou/uL (0.0-0.2); #Lymphocytes 0.3 thou/uL (1.20-3.40); #Neutrophils 4.5 thou/uL (1.40-6.50); %Eosinophils 0.1 % (0.0-10.0); %Lymphocytes 6.3 % (21.0-51.0); %Monocytes 0.7 % (0.0-10.0); %Neutrophils 91.9 % (42.0-75.0); Hemoglobin 13.5 g/dL (12.0-16.0); Mean Corpuscular HGB CONC 31.4 g/dL (32.0-36.0); Mean Corpuscular Hemoglobin 28.7 pg (27.0-31.0); Mean Corpuscular Volume 91.4 fl (81.0-99.0); Mean Platelet Volume 9.6 fL (7.4-10.4); PLT Morphology Comment Appears Adequate; Platelet Count 165 thou/uL (130-400); RBC Distribution Width 13.1 % (11.5-14.5); RBC Morphology Normal; Red Blood Cell (RBC) Count 4.71 mill/uL (4.20-5.40); White Blood Cell (WBC) Count 4.9 thou/uL (4.8-10.8)
[2017-05-12] MEDS: Enoxaparin Sodium 40 MG/0.4 ML SYRINGE SC SCH ×2 (08:32→08:36)
[2017-05-12] MEDS: Aspirin 325 MG TAB PO SCH (08:32)
[2017-05-12] MEDS: Famotidine 20 MG TAB PO SCH ×3 (08:32→21:03)
--- NOTE | 2017-05-12 17:59 | PDOC.PN ---
- Subjective Encounter Start Date: 05/12/17 Encounter Start Time: 10:20 Pt seen for followup re: acute respiratory failure. Reports cough, shortness of breath. No fevers. - Objective Resuscitation Status: Resuscitation Status FULL:Full Resuscitation MAR Reviewed: Yes Vital Signs & Weight: Vital Signs (12 hours) Temp Pulse Resp BP Pulse Ox 05/12/17 15:05 98.9 F 99 18 123/66 95 05/12/17 12:32 96 05/12/17 12:15 100 22 H 97 05/12/17 11:05 98.0 F 87 16 121/63 98 05/12/17 08:00 97.8 F 100 18 100 05/12/17 07:20 97.8 F 100 18 122/62 97 05/12/17 06:46 80 16 98 Weight Weight 104 lb 4.8 oz I&O: 05/11/17 05/12/17 05/13/17 06:59 06:59 06:59 Intake Total 400 Output Total 1050 Balance -650 Result Diagrams: 05/12/17 04:45 05/12/17 04:45 EKG Reviewed by me: Yes (Tele: NSR) Phys Exam - Physical Examination Constitutional: NAD HEENT: PERRLA, moist MMs, sclera anicteric, oral pharynx no lesions Neck: no nodes, no JVD, supple, full ROM Respiratory: wheezing present Diffuse expiratory wheeze over all lung napoles Cardiovascular: RRR, no rub Gastrointestinal: soft, non-tender, no distention, positive bowel sounds Neurological: moves all 4 limbs Psychiatric: A&O x 3 Deviation from normal: appears anxious Dx/Plan (1) Acute and chronic respiratory failure ([id number]) Code(s): J96.20 - ACUTE AND CHR RESP FAILURE, UNSP W HYPOXIA OR HYPERCAPNIA Status: Acute Qualifiers: Respiratory failure complication: hypoxia and hypercapnia Qualified Code(s) : J96.21 - Acute and chronic respiratory failure with hypoxia; J96.22 - Acute and chronic respiratory failure with hypercapnia; J96.22 - Acute and chronic respiratory failure with hypercapnia; J96.22 - Acute and chronic respiratory failure with hypercapnia (2) COPD exacerbation Code(s): J44.1 - CHRONIC OBSTRUCTIVE PULMONARY DISEASE W (ACUTE) EXACERBATION Status: Acute (3) Acute bronchitis due to Rhinovirus Code(s): J20.6 - ACUTE BRONCHITIS DUE TO RHINOVIRUS Status: Acute (4) Dyslipidemia Code(s): E78.5 - HYPERLIPIDEMIA, UNSPECIFIED Status: Chronic (5) Hypertension Code(s): I10 - ESSENTIAL (PRIMARY) HYPERTENSION Status: Chronic (6) Tobacco abuse Code(s): Z72.0 - TOBACCO USE Status: Chronic - Plan continue antibiotics, out of bed/ambulate * . Pt was treated with BiPAP. Continue oxygen, steroids, bronchodilators and antibiotics. Monitor vital signs and titrate antihypertensives as needed. Nicotine replacement therapy. Review of Systems - Review of Systems Constitutional: other. negative: fever, chills, sweats, weakness, malaise Respiratory: Cough, Shortness of Breath, SOB with Excertion, Sputum. negative: Dry, Hemoptysis, Pleuritic Pain, Wheezing Cardiovascular: negative: chest pain, palpitations, orthopnea, paroxysmal nocturnal dyspnea, edema, light headedness Gastrointestinal: negative: Nausea, Vomiting, Abdominal Pain, Diarrhea, Constipation, Melena, Hematochezia Genitourinary: negative: Dysuria, Frequency, Incontinence, Hematuria, Retention - Medications/Allergies Allergies/Adverse Reactions: Allergies Allergy/AdvReac Type Severity Reaction Status Date / Time cyclobenzaprine AdvReac Verified 05/12/17 02:35 [[facility] Medications: Current Medications Acetaminophen (Tylenol) 650 mg PO Q4H PRN PRN Reason: Headache/Fever or Pain Albuterol/Ipratropium (Duoneb) 3 ml NEB [id number] Last Admin: 05/12/17 16:57 Dose: Not Given Aspirin (Aspirin) 325 mg PO QAM-WM [facility] Last Admin: 05/12/17 08:32 Dose: 325 mg Enoxaparin Sodium (Lovenox) 40 mg SC 0900 [facility] Last Admin: 05/12/17 08:36 Dose: Not Given Famotidine (Pepcid) 20 mg PO BID [facility] Last Admin: 05/12/17 08:36 Dose: Not Given Guaifenesin/Dextromethorphan (Robitussin Dm) 15 ml PO Q4H PRN PRN Reason: Cough Levofloxacin 750 mg/ Device 150 mls @ 100 mls/hr IVPB 2100 [facility] Sodium Chloride (Normal Saline 0.9%) 1,000 mls @ 50 mls/hr IV .Q20H [facility] Last Admin: 05/12/17 04:54 Dose: 1,000 mls Methylprednisolone Sodium Succinate (Solu-Medrol) 40 mg IVP Q6HR [facility] Last Admin: 05/12/17 17:26 Dose: 40 mg Nicotine (Nicoderm Patch) 21 mg TD Q24HR [facility] Last Admin: 05/12/17 04:54 Dose: 21 mg Senna (Senokot) 2 tab PO HSPRN PRN PRN Reason: Constipation
--- NOTE | 2017-05-13 01:11 | CON ---
DATE OF CONSULTATION: 05/12/2017 HISTORY OF PRESENT ILLNESS: Linda Yee is a 51-year-old female. She has been seen by my associa te, Dr. Sifuentes. She presents with complaints of several days of progressive shortness of breath on exertion and at re st. She actually worked through this and finally presented to the emergency room after work yesterday and was subsequently admitted. She has had some yellow sputum. She denies chest pain or hemoptysis. PAST MEDICAL HISTORY: 1. Remarkable for COPD. 2. Lipid disorder. 3. Back surgery. 4. Peripheral vascular disease with fem-pop bypass in 07/2016. 5. History of bowel obstruction leading to resection. SOCIAL HISTORY: She smokes for marijuana, smokes a pack a day. Drinks occasionally. 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 ALLERGIES: She has allergies to FLEXERIL. FAMILY HISTORY: Positive for cancer. REVIEW OF SYSTEMS: Twelve-point is otherwise negative. PHYSICAL EXAMINATION: GENERAL: She is in no distress. VITAL SIGNS: Afebrile, heart rate is 99, respiratory rate is 18, oximetry is 95 on 3 liters, and blo od pressure 123/66. HEENT: Pupils are equal. Sclerae is anicteric. NECK: Supple. LUNGS: Remarkable for diffuse coarse wheezes. HEART: Regular rhythm, no S3. ABDOMEN: Soft and nontender. EXTREMITIES: Without clubbing, cyanosis, or edema. LABORATORY DATA: White count 4.9, hemoglobin 13.5, platelets 165. Sodium 138, potassium 4.3, chlori de 106, bicarbonate 24, BUN 6, creatinine 0.65. Blood gas last night 7.28, CO2 of 60, pO2 of 38. Chest radiograph has been reviewed by me, I do not see any alveolar infiltrates. IMPRESSION: 1. Chronic obstructive pulmonary disease exacerbation. 2. Ongoing tobacco use. PLAN: Continue steroids, nebulizer treatments, and antibiotics. Her antibiotics can be switched to the enteral route tomorrow. Steroid dose, hopefully, can be decreased tomorrow. She can move out of the intermediate care unit. She no longer needs BiPAP, but we will need ongoing close observation, likely within the hospital se veral more days. This is 50 minutes consultation with 50% of the time was spent on the coordinating care and also inte rviewed all family members and they were in the room. They had a little to add to the above history.
[2017-05-13 04:32] LABS: #Lymphocytes 0.4 thou/uL (1.20-3.40); #Monocytes 0.2 thou/uL (0.11-0.59); #Neutrophils 8.6 thou/uL (1.40-6.50); %Eosinophils 0.2 % (0.0-10.0); %Lymphocytes 4.4 % (21.0-51.0); %Monocytes 2.4 % (0.0-10.0); Hemoglobin 13.5 g/dL (12.0-16.0); Mean Corpuscular HGB CONC 33.1 g/dL (32.0-36.0); Mean Corpuscular Hemoglobin 30.2 pg (27.0-31.0); Mean Corpuscular Volume 91.3 fl (81.0-99.0); Mean Platelet Volume 10.2 fL (7.4-10.4); Platelet Count 167 thou/uL (130-400); RBC Distribution Width 13.4 % (11.5-14.5); Red Blood Cell (RBC) Count 4.47 mill/uL (4.20-5.40); White Blood Cell (WBC) Count 9.2 thou/uL (4.8-10.8)
[2017-05-13 04:49] LABS: Anion Gap 12 mmol/L (10-20); BUN (Urea Nitrogen) 13 mg/dL (9.8-20.1); Calc. Creatinine Clearance 73 mL/min (70-130); Calcium 9.5 mg/dL (7.8-10.44); Carbon Dioxide 24 mmol/L (22-29); Chloride 107 mmol/L (98-107); Estimated GFR-MDRD Greater than 90; Glucose 147 mg/dL (70-105); Potassium 3.9 mmol/L (3.5-5.1); Sodium 139 mmol/L (136-145)
[2017-05-13] MEDS: Nicotine 21 MG PATCH TD SCH (05:20)
[2017-05-13] MEDS: Aspirin 325 MG TAB PO SCH (08:07)
[2017-05-13] MEDS: Famotidine 20 MG TAB PO SCH (08:08)
[2017-05-13] MEDS: Enoxaparin Sodium 40 MG/0.4 ML SYRINGE SC SCH (08:08)
--- NOTE | 2017-05-13 13:16 | PRG ---
DATE OF SERVICE: 05/13/2017 SERVICE: Pulmonary Medicine. INTERVAL HISTORY: The patient is doing great from a respiratory standpoint. She is breathing comfor tably and denies any current fevers, chills, nausea, or vomiting. Overnight, she had a dramatic impr ovement in her respiratory symptoms. Otherwise, there has been no interval change to her condition. Nurse reports no events. PHYSICAL EXAMINATION: VITAL SIGNS: Afebrile, pulse 94, blood pressure 121/62, respirations 16, saturation 95% on room air. GENERAL: The patient is awake, alert, in no apparent distress. LUNGS: Reduced air entry. There is a little bit of polyphonic wheezing. No crackles or rhonchi are appreciated. HEART: Normal rate, regular. ABDOMEN: Soft, nontender, nondistended. Bowel sounds are positive. MUSCULOSKELETAL: No cyanosis or clubbing. No pitting in the bilateral lower extremities. NEUROLOGIC: Grossly nonfocal. LABORATORY DATA: WBC 9.2, hemoglobin 13.5, platelets 167,000. Basic metabolic profile completely re arie unremarkable. Urinalysis is negative. Urine drug screen is positive for cannabinoids and opia yung. Respiratory virus panel is positive for rhinovirus. Blood cultures x2 and influenza is unremar kable. ASSESSMENT: 1. Acute hypoxic and hypercapnic respiratory failure, resolved. 2. Chronic obstructive pulmonary disease with acute exacerbation. 3. Tobacco abuse, ongoing. 4. Rhinovirus. DISCUSSION AND PLAN: The patient indicates that she has effectively returned to her usual state of h ealth. At this point, I do think it would be reasonable to transition her over to p.o. medication. If she remains stable, discharge her home. Pulmonary Critical Care will continue to follow if she re arie in-house.
--- NOTE | 2017-05-13 17:20 | PDOC.PN ---
- Subjective Encounter Start Date: 05/13/17 Encounter Start Time: 09:00 Pt seen for followup re: acute on chronic respiratory failure. feels better. Occ cough with clear sputum. No nausea or vomiting or diarrhea. - Objective Resuscitation Status: Resuscitation Status FULL:Full Resuscitation MAR Reviewed: Yes Vital Signs & Weight: Vital Signs (12 hours) Temp Pulse Resp BP Pulse Ox 05/13/17 16:00 97 05/13/17 13:58 91 18 93 L 05/13/17 11:45 98.0 F 94 16 121/62 95 05/13/17 11:00 94 16 95 05/13/17 08:31 98.3 F 93 16 116/71 91 L 05/13/17 08:00 97.9 F 94 18 93 L 05/13/17 06:59 98 05/13/17 06:58 94 18 98 Weight Weight 104 lb 4.8 oz I&O: 05/12/17 05/13/17 05/14/17 06:59 06:59 06:59 Intake Total 400 1830 Output Total 1050 850 Balance -650 980 Result Diagrams: 05/13/17 03:21 05/13/17 03:21 Phys Exam - Physical Examination Constitutional: NAD HEENT: moist MMs Neck: supple Respiratory: clear to auscultation bilateral Cardiovascular: RRR Gastrointestinal: soft Neurological: moves all 4 limbs Psychiatric: normal affect Dx/Plan (1) Acute and chronic respiratory failure ([id number]) Code(s): J96.20 - ACUTE AND CHR RESP FAILURE, UNSP W HYPOXIA OR HYPERCAPNIA Status: Acute Qualifiers: Respiratory failure complication: hypoxia and hypercapnia Qualified Code(s) : J96.21 - Acute and chronic respiratory failure with hypoxia; J96.22 - Acute and chronic respiratory failure with hypercapnia; J96.22 - Acute and chronic respiratory failure with hypercapnia; J96.22 - Acute and chronic respiratory failure with hypercapnia (2) COPD exacerbation Code(s): J44.1 - CHRONIC OBSTRUCTIVE PULMONARY DISEASE W (ACUTE) EXACERBATION Status: Acute (3) Acute bronchitis due to Rhinovirus Code(s): J20.6 - ACUTE BRONCHITIS DUE TO RHINOVIRUS Status: Acute (4) Dyslipidemia Code(s): E78.5 - HYPERLIPIDEMIA, UNSPECIFIED Status: Chronic (5) Hypertension Code(s): I10 - ESSENTIAL (PRIMARY) HYPERTENSION Status: Chronic (6) Tobacco abuse Code(s): Z72.0 - TOBACCO USE Status: Chronic - Plan continue antibiotics, out of bed/ambulate * . Continue oxygen, steroids, antibiotics and bronchodilators. Likely home 24-48 hrs. Review of Systems - Review of Systems Eyes: negative: Pain, Vision Change, Conjunctivae Inflammation, Eyelid Inflammation, Redness Respiratory: negative: Cough, Dry, Shortness of Breath, Hemoptysis, SOB with Excertion, Pleuritic Pain, Sputum, Wheezing Cardiovascular: negative: chest pain, palpitations, orthopnea, paroxysmal nocturnal dyspnea, edema, light headedness - Medications/Allergies Allergies/Adverse Reactions: Allergies Allergy/AdvReac Type Severity Reaction Status Date / Time cyclobenzaprine AdvReac Verified 05/12/17 02:35 [From Flexeril] Medications: Current Medications Acetaminophen (Tylenol) 650 mg PO Q4H PRN PRN Reason: Headache/Fever or Pain Albuterol/Ipratropium (Duoneb) 3 ml NEB [id number] [facility] Last Admin: 05/13/17 13:58 Dose: 3 ml Aspirin (Aspirin) 325 mg PO QAM-WM [facility] Last Admin: 05/13/17 08:07 Dose: 325 mg Enoxaparin Sodium (Lovenox) 40 mg SC 0900 [facility] Last Admin: 05/13/17 08:08 Dose: Not Given Levofloxacin (Levaquin) 750 mg PO 0600 [facility] Stop: 05/18/17 06:01 Nicotine (Nicoderm Patch) 21 mg TD Q24HR [facility] Last Admin: 05/13/17 05:20 Dose: 21 mg Prednisone (Prednisone) 40 mg PO DAILY [facility] Stop: 05/18/17 09:01 Senna (Senokot) 2 tab PO HSPRN PRN PRN Reason: Constipation
[2017-05-14] MEDS: Nicotine 21 MG PATCH TD SCH (05:12)
[2017-05-14] MEDS: Aspirin 325 MG TAB PO SCH (08:06)
[2017-05-14] MEDS: Enoxaparin Sodium 40 MG/0.4 ML SYRINGE SC SCH (08:42)
[2017-05-14] MEDS ORDERED: predniSONE 20 MG TAB PO SCH (09:00)
--- NOTE | 2017-05-14 11:09 | DIS ---
DATE OF ADMISSION: 05/12/2017 DATE OF DISCHARGE: 05/14/2017 PRIMARY CARE PHYSICIAN: Ana M Mcclendon M.D. DISCHARGE DIAGNOSES: 1. Acute on chronic respiratory failure. 2. Chronic obstructive pulmonary disease exacerbation. CONDITION OF PATIENT ON THE DAY OF DISCHARGE: Stable. I saw Ms. Yee on the day of discharge. She denies any chest pain or shortness of breath. Vital signs are stable. S1 and S2 are heard, regu lar. She has occasional expiratory wheeze. DISCHARGE MEDICATIONS: Levofloxacin 750 mg daily for 4 more days, prednisone 40 mg daily for 4 days, nicotine 21 mg patch daily, DuoNebs q.4 h. p.r.n., Lipitor 40 mg at bedtime, aspirin 325 mg daily. HOSPITAL COURSE: Ms. Yee is a pleasant 51-year-old lady who was admitted to IMCU at [facility] on 05/12/2017 for acute on chronic respiratory failure with hypercapnia and hy poxia. She was seen by the Pulmonology Service. She improved with oxygen, steroids, bronchodilators and antibiotics. She was subsequently transferred to the medical floor. She continued to improve a nd is being discharged home in a stable condition. Her influenza screen was negative during this hospitalization. On the day of discharge, she has whit e count 9200, hemoglobin 13.5, and platelet count 167,000. Normal electrolytes and normal creatinine . Many thanks for allowing me to participate in your patient's care. Please feel free to contact me wi th any questions or concerns. DISCHARGE DESTINATION: Home. TOTAL AMOUNT OF TIME SPENT COORDINATING THIS DISCHARGE: 32 minutes.
[2017-05-14 11:31] VITALS: BP 130/81; TEMP 97.6
--- NOTE | 2017-06-20 12:25 | EKG ---
Test Reason : SOB Blood Pressure : / mmHG Vent. Rate : 117 BPM Atrial Rate : 117 BPM P-R Int : 134 ms QRS Dur : 064 ms QT Int : 326 ms P-R-T Axes : 078 088 065 degrees QTc Int : 454 ms Sinus tachycardia Biatrial enlargement Septal infarct , age undetermined Abnormal ECG Confirmed by ANGEL MARY, CRISPIN ([id number]), technical editor ABNER BORJAS ([id number]) on 06/20/2017 12:24:39 PM Referred By: Confirmed By:CRISPIN ORTIZ MD
== END 2017-05-14 11:32 | disposition home or self-care (01) | DRG 189 ==
LOC: ERS 19:57 → ERHOLD 21:02 → IMCU/EMU 05-12 01:59 → 2NO 05-12 19:27 → T4-B 05-12 19:48
PROVIDERS: ADMIT Family Medicine; ATTEND Family Medicine
PROC: 5A09357 Assistance with Respiratory Ventilation, Less than 24 Consecutive Hours, Continuous Positive Airway Pressure (ICD-10-PCS; principal; 2017-05-11)
DX: J96.21 Acute and chronic respiratory failure with hypoxia (principal); J44.0 Chronic obstructive pulmonary disease with (acute) lower respiratory infection; J44.1 Chronic obstructive pulmonary disease with (acute) exacerbation; J96.22 Acute and chronic respiratory failure with hypercapnia; F17.210 Nicotine dependence, cigarettes, uncomplicated; J20.6 Acute bronchitis due to rhinovirus; E78.5 Hyperlipidemia, unspecified; I10 Essential (primary) hypertension; F12.10 Cannabis abuse, uncomplicated
CPT/HCPCS: 36415; 71045; 80048; 80053; 80306; 81003; 82553; 82805; 83605; 83690; 83880; 84484; 85025; 85610; 85730; 87040; 87633; 87804; 93005; 96365; 96375; J1100; J1650; J1956; J2060; J2920; J3475; J7506; J7611; J7620

== ENCOUNTER 2017-12-23 08:58 | Emergency (ER) | payer SELFPAY ==
[2017-12-23 09:28] LABS: Bilirubin Negative (Negative); Blood, Urine Negative (Negative); Clarity CLEAR (Clear); Glucose, Urine (Dipstick) Negative (Negative); Leukocyte Negative (Negative); Nitrite Negative (Negative); Protein, Urine (Dipstick) Negative (Neg-Trace); Specific Gravity, Urine 1.005 (1.002-1.036); Urobilinogen 0.2 mg/dL (0.2-1.0)
[2017-12-23 09:37] LABS: Mean Corpuscular HGB CONC 32.3 g/dL (32.0-36.0); Mean Corpuscular Volume 92.7 fL (78.0-98.0); Mean Platelet Volume 8.9 fL (7.4-10.4); Platelet Count 212 thou/uL (130-400); RBC Distribution Width 13.2 % (11.5-14.5); Red Blood Cell (RBC) Count 5.66 mill/uL (4.20-5.40); White Blood Cell (WBC) Count 10.1 thou/uL (4.8-10.8)
[2017-12-23] MEDS ORDERED: Ondansetron HCl/PF 4 MG/2 ML Vial ONE (09:47)
[2017-12-23 09:55] LABS: Band 3 % (5-11); Lymphocytes 7 % (21-51); MDiff Complete? YES; Monocytes 7 % (0-10); Neutrophil 80 % (42-75); PLT Morphology Comment Appears Adequate; Reactive Lymphocytes 2 % (0-10)
[2017-12-23 09:57] LABS: ALT (SGPT) 10 U/L (8-55); AST (SGOT) 16 U/L (5-34); Albumin 4.5 g/dL (3.5-5.0); Alkaline Phosphatase 122 U/L (40-150); Anion Gap 14 mmol/L (10-20); BUN (Urea Nitrogen) 8 mg/dL (9.8-20.1); Bilirubin, Total 0.2 mg/dL (0.2-1.2); Calc. Creatinine Clearance 0 mL/min (70-130); Carbon Dioxide 23 mmol/L (22-29); Chloride 103 mmol/L (98-107); Estimated GFR-MDRD 82; Globulin 3.6 g/dL (2.4-3.5); Glucose 88 mg/dL (70-105); Lipase 55 U/L (8-78); Potassium 4.1 mmol/L (3.5-5.1); Protein, Total 8.1 g/dL (6.0-8.3); Sodium 136 mmol/L (136-145)
[2017-12-23 10:02] LABS: CKMB 1.3 ng/mL (0-6.6); Troponin I Less than 0.010 ng/mL (< 0.028)
[2017-12-23] MEDS ORDERED: ISOVUE-370 76%-LOCM 1 ML ONE (10:12)
--- NOTE | 2017-12-23 10:45 | CT ---
CT ABDOMEN AND PELVIS WITH CONTRAST: HISTORY: Abdominal pain. COMPARISON: CTA from 09/09/2016. FINDINGS: The lung bases are clear. No pericardial effusion. Calcified granulomas of the spleen. No nephroureterolithiasis or hydroureteronephrosis. There is a small characterized hypodensity in th e interpolar right kidney. The liver is unremarkable, as well as the pancreas. No retroperitoneal adenopathy. There is distent ion of the gonadal veins bilaterally, although more prominent on the left. No free intraperitoneal gas or fluid. No aneurysmal dilatation of the aorta, although there are exte nsive post surgical changes. The common iliac arteries are patent. There is narrowing of the fitting room operator al iliac arteries bilaterally. Mild prominence of the common bile duct, although similar to the comparison examination. IMPRESSION: No acute abnormality of the abdomen or pelvis. POS: FLAKITO
[2017-12-23] MEDS ORDERED: Magnesium Citrate 300 ML BOT ONE (12:57)
--- NOTE | 2017-12-23 20:13 | HP ---
HISTORY OF PRESENT ILLNESS: A 51-year-old female who is known to me. She presents to the emergency room, seen by Dr. Robert Mohr, evaluating her for abdominal pain. Patient reports that her upper abd ominal pain is severe and associated with some nausea, although no vomiting. She reports a small bow el movement this morning and two small bowel movements yesterday. She takes MiraLax in the morning a nd at night. She has never had a colonoscopy. There is no family history of colon cancer. The juarez ent has had an extensive workup with a normal CBC, comp met, and a CAT scan of the abdomen and pelvis without oral contrast. CAT scan of the abdomen and pelvis without oral contrast, but with IV contra st reveals no acute finding. Bowel gas pattern is normal. There is no bowel distention. She, asia watson, on my personal review of the CAT scan does have significant stool in the right colon, hepatic fle xure, and transverse colon, some in sigmoid colon. Patient reports that she has had neuropathic type pain in her right fingers with right upper ex tremity weakness. She is right-handed. She states she is very strong in her left upper extremity an d lower extremities. She saw Dr. Sammy Strong's physician's library assistant in the last year and was told she probably needs cervical spine surgery. The patient does not have insurance, but her family pull ed together to pay for an MRI at [facility] prior to that neurosurgery visit. Those studies are not available. SOCIAL HISTORY: Patient does smoke a pack a day. She uses nebulizers at home. ALLERGIES: CYCLOBENZAPRINE. ALCOHOL: Rarely. PAST SURGICAL HISTORY: Aortobifemoral bypass grafting last year for PAD, laparotomy, adhesiolysis fo r an internal hernia and a bowel obstruction that performed after aortobifemoral bypass last year. PHYSICAL EXAMINATION: VITAL SIGNS: Heart rate 74, respiratory rate 18. GENERAL: Patient is in no distress. LUNGS: Clear to auscultation, no wheezing. CARDIAC: Regular rate and rhythm. No gallop or gallop. ABDOMEN: Soft. Scar per aortobifemoral bypass surgery with very small incisional hernia, probably, 1 cm or less upper abdomen, reducible, soft, nontender. EXTREMITIES: Unremarkable. I cannot palpate pedal pulses, white count 10, hemoglobin 17. Basic met abolic profile normal. Liver function tests normal. CAT scan of the abdomen and pelvis as noted abo ve. ASSESSMENT AND PLAN: Abdominal pain. I think her upper abdominal pain, which has been occurring for several months occurr ing episodically is multifactorial. She does have moderate amount of stool in her ascending, transve rse, sigmoid colon. She is taking MiraLax twice a day, I have recommended magnesium citrate, adequat e hydration. The patient has known cervical spine disease with neuropathic pain, weakness in her right hand and wa s told that she would need an operation of this, but she does not have any financial resources. Her current pain in her upper abdomen, occurring episodically and radiating to her mid thoracic spine is consistent with probably a neuropathic etiology to her pain. Her upper abdominal pain may be multifa ctorial, both moderate constipation and neurogenic. I do not think there is any acute abdominal prob renato that needs surgical attention. I have spent some time discussing with her treatment plan. I have offered to put her in the hospital for pain control, evaluation of her cervical thoraco-spine disease. She should also be considered f or colonoscopy at her age of 51. She has never had one. There are no overt problems with colon othe r than her constipation seen radiologically on her CAT scan. Given these options, the patient does n ot want to be in the hospital, wants to go home. I have talked to Dr. Mohr. I have encouraged th e patient to take ibuprofen and Tylenol [id number]. I have discussed with genevieve Calvert given her gabapentin. The patient should follow up with Neurosurgery. She should [facility] up with [facility] for screening colonoscopy. I have reiterated smoking cessation importance along with her due to her known PAD. I told her that she worries ever to be considered for spinal surgery. Sm oking cessation will be prerequisite.
--- NOTE | 2017-12-26 12:25 | EKG ---
Test Reason : Blood Pressure : / mmHG Vent. Rate : 101 BPM Atrial Rate : 101 BPM P-R Int : 144 ms QRS Dur : 066 ms QT Int : 324 ms P-R-T Axes : 081 065 058 degrees QTc Int : 420 ms Sinus tachycardia Biatrial enlargement Possible Anterior infarct , age undetermined Abnormal ECG Confirmed by NEERAJ RITCHIE ([id number]), manuscript editor MARCK GROVES ([id number]) on 12/26/2017 12:24:48 PM Referred By: Confirmed By:NEERAJ RITCHIE
== END 2017-12-23 13:29 | disposition home or self-care (01) ==
LOC: ERS 08:58
DX: K43.2 Incisional hernia without obstruction or gangrene (principal); J44.9 Chronic obstructive pulmonary disease, unspecified; E78.00 Pure hypercholesterolemia, unspecified; F17.210 Nicotine dependence, cigarettes, uncomplicated
CPT/HCPCS: 74177; 80053; 81003; 82553; 83690; 84484; 85025; 93005; 96361; 96374; 96375; 96376; J2270; J2405

== ENCOUNTER 2019-05-03 15:59 | Inpatient (IN) | payer SELFPAY ==
[2019-05-03] MEDS ORDERED: Albuterol Sulfate 2.5 mg/0.5 ml Neb ONE ×3 (16:16→20:35)
[2019-05-03] MEDS ORDERED: Albuterol Sulfate 2.5 mg/3 ml Neb ONE ×4 (16:16→20:40)
[2019-05-03 16:37] LABS: #Eosinphils 0.1 thou/uL (0.0-0.7); #Lymphocytes 0.9 thou/uL (1.20-3.40); #Monocytes 0.8 thou/uL (0.11-0.59); #Neutrophils 9.2 thou/uL (1.40-6.50); %Basophils 0.3 % (0.0-1.0); %Eosinophils 0.8 % (0.0-10.0); %Lymphocytes 7.7 % (21.0-51.0); %Monocytes 7.4 % (0.0-10.0); %Neutrophils 83.9 % (42.0-75.0); Hemoglobin 14.6 g/dL (12.0-16.0); Mean Corpuscular HGB CONC 32.5 g/dL (32.0-36.0); Mean Corpuscular Hemoglobin 29.1 pg (27.0-31.0); Mean Corpuscular Volume 89.5 fL (78.0-98.0); Mean Platelet Volume 8.9 fL (7.4-10.4); Platelet Count 169 thou/uL (130-400); RBC Distribution Width 11.9 % (11.5-14.5); Red Blood Cell (RBC) Count 5.01 mill/uL (4.20-5.40)
[2019-05-03 16:50] LABS: Actual Bicarbonate (HCO3a) 25.8 mEq/L (22-28); Analyzer IN Cardio ER; Base Excess (BEa) 0.2 mEq/L (-2.0 to +3.0); Calcium, Ionized 1.17 mmol/L (1.12-1.30); Carboxyhemoglobin (COHb) 1.1 gm% (0.0-3.0); Hemoglobin (Hb) 14.7 g/dL (12.0-16.0); O2 Tension (PaO2) 80.3 mmHg (80.0-100.0); pH, Arterial 7.38 (7.35-7.45)
[2019-05-03 16:51] LABS: Puncture Site RBA
[2019-05-03] MEDS ORDERED: methylPREDNISolone Sod Succ/PF 125 MG/2 ML VIAL ONE (16:59)
[2019-05-03] MEDS ORDERED: Cefepime 2 GM VIAL ONE (16:59)
[2019-05-03 17:00] LABS: ALT (SGPT) 13 U/L (8-55); AST (SGOT) 17 U/L (5-34); Albumin 4.8 g/dL (3.5-5.0); Alkaline Phosphatase 93 U/L (40-110); Anion Gap 13 mmol/L (10-20); BUN (Urea Nitrogen) 9 mg/dL (9.8-20.1); Bilirubin, Total 0.3 mg/dL (0.2-1.2); Calc. Creatinine Clearance 0 mL/min (70-130); Calcium 9.5 mg/dL (7.8-10.44); Carbon Dioxide 27 mmol/L (22-29); Chloride 101 mmol/L (98-107); Estimated GFR-MDRD 78; Globulin 3.1 g/dL (2.4-3.5); Glucose 111 mg/dL (70-105); Potassium 4.3 mmol/L (3.5-5.1); Protein, Total 7.9 g/dL (6.0-8.3); Sodium 137 mmol/L (136-145)
[2019-05-03 17:06] LABS: Bilirubin Negative (Negative); Blood, Urine Negative (Negative); Clarity Clear (Clear); Glucose, Urine (Dipstick) Normal (Negative); Leukocyte Negative Leu/uL (Negative); Nitrite Negative (Negative); Protein, Urine (Dipstick) Negative (Neg-Trace); Urobilinogen Normal mg/dL (Less than 2)
--- NOTE | 2019-05-03 17:40 | RAD ---
PA AND LATERAL CHEST: 05/03/19 HISTORY: COPD. Shortness of breath. COMPARISON: 05/11/17 study. Heart size and mediastinum are within normal limits. The lungs are clear of any infiltrates. There ar e sclerotic change in the spine. IMPRESSION: No active intrathoracic disease. Stable chest. POS: [facility]
[2019-05-03] MEDS ORDERED: Azithromycin 250 MG TAB ONE (20:35)
[2019-05-03] MEDS ORDERED: Magnesium 2 GM/50 ML BAG (IN WATER) ONE (20:35)
[2019-05-03] MEDS ORDERED: Bisacodyl 10 MG SUPP PR PRN (21:52)
[2019-05-03] MEDS ORDERED: Bisacodyl 5 MG TAB PO PRN (21:52)
[2019-05-03] MEDS ORDERED: Acetaminophen 325 MG TAB PO PRN (21:52)
[2019-05-03] MEDS ORDERED: Senokot S 8.6-50 MG TAB PO PRN (21:52)
[2019-05-03] MEDS ORDERED: HYDROcodone/Acetaminophen 5/325 mg Tablet PO PRN (21:52)
[2019-05-03] MEDS ORDERED: hydrALAZINE 20 MG/ML VIAL SLOW IVP PRN (21:54)
[2019-05-03] MEDS ORDERED: cloNIDine 0.1 MG TAB PO PRN (21:54)
[2019-05-03] MEDS ORDERED: Ondansetron PF 4 MG/2 ML Vial IVP PRN (21:54)
[2019-05-03] MEDS ORDERED: Promethazine HCl 12.5 MG in Sodium Chloride 0.9% 50 ML IVPB PRN (21:54)
[2019-05-03] MEDS ORDERED: guaiFENesin/Codeine Phosphate 200 mg/20 mg 10 ml UD Cup PO PRN (21:55)
--- NOTE | 2019-05-03 22:01 | PDOC.HHP ---
Hospitalist HPI - History of Present Illness Shortness of breath History of Present Illness: Patient is a 53 year old female with PMH COPD, HLD, tobacco user who presents to hospital for shortness of breath for 2-3 days, patient reports worsening cough and shortness of breath, patient has COPD on albuterol and ellipta, sees Dr Sifuentes, reports chills and fever, per ED records patient was on oxygen for a time, tripod position in distress inititially but is now improved with interventions, however very short of breath with exertion and satting 90-92 on RA and needed wheelchair to go to restroom. In ED, recieved nebs, mag sulfate, azithromycin, vancomycin, cefepime, solu medrol, 30 cc/kg bolus, IM consulted for admission. Does not use o2 at home, is an active smoker. Hospitalist ROS - Review of Systems Constitutional: reports: fever, chills Eyes: denies: pain, vision change, conjunctivae inflammation, eyelid inflammation, redness, other ENT: denies: ear pain, ear discharge, nose pain, nose discharge, nose congestion , mouth pain, mouth swelling, throat pain, throat swelling, other Respiratory: reports: cough, shortness of breath, sputum, wheezing Cardiovascular: denies: chest pain, palpitations, orthopnea, paroxysmal noc. dyspnea, edema, light headedness, other Gastrointestinal: denies: nausea, vomiting, abdominal pain, diarrhea, constipation, melena, hematochezia, other Genitourinary: denies: dysuria, frequency, incontinence, hematuria, retention, other Musculoskeletal: denies: neck pain, shoulder pain, arm pain, back pain, hand pain, leg pain, foot pain, other Skin: denies: rash, lesions, april, bruising, other Neurological: denies: weakness, numbness, incoordination, change in speech, confusion, seizures, other All other systems reviewed; all pertinent +/- noted in HPI/Subj - Medication Medications: Anoro Ellipta BLISTER, WITH INHALATION DEVICE : Strength - 62.5 mcg-25 mcg/actuation : INHALATION Patient Dose: Unknown. albuterol AEROSOL (GRAM) : Strength - 90 mcg : INHALATION Patient Dose: Unknown. Hospitalist History - Past Medical History Other Medical History: COPD hyperlipidemia - Past Surgical History Other Surgical History: back surgery fem pop bypass bowel resection - Family History Family History: reports: no pertinent history - Social History Smoking Status: Current every day smoker Other Social History: Patient drinks socially, Patient denies drug use, Patient currently uses tobacco, smokes cigarettes, Patient smokes 1 pack per day, since age 9, Lives at home, with family, lives with spouse. - Exam General Appearance: NAD, awake alert Eye: PERRL, anicteric sclera ENT: normocephalic atraumatic, no oropharyngeal lesions, moist mucosa Neck: supple, symmetric, no JVD, no thyromegaly, no lymphadenopathy, no carotid bruit Heart: no murmur, no gallops, no rubs, normal peripheral pulses Heart - other findings: tachycardia, regular rhythm Respiratory - other findings: slight wheezes, decreased breath sounds throughout Gastrointestinal: soft, non-tender, non-distended, normal bowel sounds, no palpable masses, no hepatomegaly, no splenomegaly, no bruit Extremities: no cyanosis, no clubbing, no edema Skin: normal turgor, no lesions, no rashes Neurological: cranial nerve grossly intact, normal sensation to touch, no weakness, no focal deficits, no new deficit Musculoskeletal: normal tone, normal strength, no muscle wasting Psychiatric: normal affect, normal behavior, A&O x 3 Hospitalist Results - Labs Result Diagrams: 05/03/19 16:19 05/03/19 16:19 Lab results: WBC 11.0 thou/uL (4.8-10.8) H 05/03/19 16:19 Hgb 14.6 g/dL (12.0-16.0) 05/03/19 16:19 Hct 44.9 % (36.0-47.0) 05/03/19 16:19 MCV 89.5 fL (78.0-98.0) 05/03/19 16:19 Plt Count 169 thou/uL (130-400) 05/03/19 16:19 Neutrophils % 83.9 % (42.0-75.0) H 05/03/19 16:19 ABG pH 7.38 (7.35-7.45) 05/03/19 16:31 ABG pCO2 45.0 mmHg (35.0-45.0) 05/03/19 16:31 ABG pO2 80.3 mmHg (80.0-100.0) 05/03/19 16:31 Sodium 137 mmol/L (136-145) 05/03/19 16:19 Potassium 4.3 mmol/L (3.5-5.1) 05/03/19 16:19 Chloride 101 mmol/L (98-107) 05/03/19 16:19 Carbon Dioxide 27 mmol/L (22-29) 05/03/19 16:19 BUN 9 mg/dL (9.8-20.1) L 05/03/19 16:19 Creatinine 0.77 mg/dL (0.6-1.1) 05/03/19 16:19 Glucose 111 mg/dL (70-105) H 05/03/19 16:19 Lactic Acid 1.0 mmol/L (0.5-2.2) 05/03/19 16:24 Calcium 9.5 mg/dL (7.8-10.44) 05/03/19 16:19 Total Bilirubin 0.3 mg/dL (0.2-1.2) 05/03/19 16:19 AST 17 U/L (5-34) 05/03/19 16:19 ALT 13 U/L (8-55) 05/03/19 16:19 Alkaline Phosphatase 93 U/L (40-110) 05/03/19 16:19 Troponin I Less than 0.010 ng/mL (< 0.028) 05/03/19 16:24 B-Natriuretic Peptide 17.0 pg/mL (0-100) 05/03/19 16:24 Serum Total Protein 7.9 g/dL (6.0-8.3) 05/03/19 16:19 Albumin 4.8 g/dL (3.5-5.0) 05/03/19 16:19 Urine Ketones Negative mg/dL (Negative) 05/03/19 16:41 Urine Blood Negative (Negative) 05/03/19 16:41 Urine Nitrite Negative (Negative) 05/03/19 16:41 Ur Leukocyte Esterase Negative Joe/uL (Negative) 05/03/19 16:41 Additional comment: VITAL SIGNS ThuMay 03, 2019 16:00 BOO Woodard, Altaf BP: 135/63 Pulse: 110 Resp: 26 Temp: 99.8 (Oral) Pain: 0 O2 sat: 92 on (Room Air) Time: 05/03/2019 16:00. Hospitalist H&P A/P - Plan Plan: Patient is a 53 year old female with PMH COPD, HLD, tobacco user who presents to hospital for shortness of breath for 2-3 days. # COPD exacerbation - admit to telemetry, scheduled and PRN duoneb, long acting neb per formulary substitute, IV steroids, consult Dr Sifuentes, continue azithromycin and ceftriaxone - CXR in ED without acute findings, follow up flu swab # sepsis - secondary to COPD exacerbation w/ leukocytosis and tachycardia, got bolus and abx, follow cultures # HLD - resume home meds # tobacco abuse - nicotine patch requires inpatient monitoring given tripoding and distress on admission, requiring IV steroids, dispo based on clinical improvement expect 2+ midnights
[2019-05-03] MEDS: methylPREDNISolone Sod Succ/PF 125 MG/2 ML VIAL IVP SCH (23:35)
[2019-05-03] MEDS: Guaifenesin DM 100-10/5 ML UDCUP PO PRN (23:36)
[2019-05-03] MEDS: Nicotine 14 MG PATCH TD SCH (23:36)
[2019-05-03 23:54] VITALS: BMI 21.3
[2019-05-04 04:16] LABS: #Basophils 0.1 thou/uL (0.0-0.2); #Lymphocytes 0.3 thou/uL (1.20-3.40); #Monocytes 0.1 thou/uL (0.11-0.59); #Neutrophils 7.8 thou/uL (1.40-6.50); %Basophils 0.7 % (0.0-1.0); %Eosinophils 0.2 % (0.0-10.0); %Lymphocytes 3.7 % (21.0-51.0); %Monocytes 1.7 % (0.0-10.0); %Neutrophils 93.9 % (42.0-75.0); Hemoglobin 13.1 g/dL (12.0-16.0); Mean Corpuscular HGB CONC 32.6 g/dL (32.0-36.0); Mean Corpuscular Hemoglobin 29.6 pg (27.0-31.0); Mean Corpuscular Volume 90.8 fL (78.0-98.0); Mean Platelet Volume 9.1 fL (7.4-10.4); Platelet Count 163 thou/uL (130-400); Red Blood Cell (RBC) Count 4.44 mill/uL (4.20-5.40); White Blood Cell (WBC) Count 8.3 thou/uL (4.8-10.8)
[2019-05-04 04:40] LABS: Anion Gap 16 mmol/L (10-20); BUN (Urea Nitrogen) 9 mg/dL (9.8-20.1); Calc. Creatinine Clearance 69 mL/min (70-130); Calcium 9.3 mg/dL (7.8-10.44); Carbon Dioxide 22 mmol/L (22-29); Chloride 105 mmol/L (98-107); Estimated GFR-MDRD 87; Glucose 157 mg/dL (70-105); Potassium 3.9 mmol/L (3.5-5.1); Sodium 139 mmol/L (136-145)
[2019-05-04] MEDS: methylPREDNISolone Sod Succ/PF 125 MG/2 ML VIAL IVP SCH ×3 (05:54→22:30)
[2019-05-04] MEDS: Arformoterol 15 MCG/2 ML NEB NEB SCH ×2 (07:15→19:03)
[2019-05-04] MEDS: Enoxaparin Sodium 40 MG/0.4 ML SYRINGE SC SCH (08:26)
[2019-05-04] MEDS: Polyethylene Glycol 3350 17 GM Packet PO SCH (08:26)
[2019-05-04] MEDS: Azithromycin 250 MG TAB PO SCH (08:26)
--- NOTE | 2019-05-04 19:19 | PDOC.HOSPP ---
- Subjective Encounter Date: 05/04/19 Encounter Time: 10:40 Subjective: Pt seen for followup re: COPD exacerbation. c/o SOBOE. Cough+, sputum+. - Objective Vital Signs & Weight: Vital Signs (12 hours) Temp Pulse Resp BP Pulse Ox 05/04/19 19:00 97 22 H 97 05/04/19 15:53 98.4 F 104 H 23 H 156/72 H 96 05/04/19 14:51 102 H 20 05/04/19 11:17 98.6 F 103 H 22 H 137/65 93 L 05/04/19 11:04 79 20 05/04/19 08:24 98.5 F 99 19 139/63 92 L Weight Weight 105 lb 12.8 oz I&O: 05/03/19 05/04/19 05/05/19 06:59 06:59 06:59 Intake Total 251 1440 Output Total 200 1000 Balance 51 440 Result Diagrams: 05/04/19 03:36 05/04/19 03:36 Additional Labs: Labs and MARs reviewed by me EKG Reviewed by me: Yes (Tele: sinus tachycardia) Hospitalist ROS - Review of Systems Constitutional: reports: weakness. denies: fever, chills, sweats, malaise Respiratory: reports: cough, SOB with excertion, sputum, wheezing. denies: dry , shortness of breath, hemoptysis, pleuritic pain Cardiovascular: denies: chest pain, palpitations, orthopnea, paroxysmal noc. dyspnea, edema, light headedness Gastrointestinal: denies: nausea, vomiting, abdominal pain, diarrhea, constipation, melena, hematochezia Skin: denies: rash, lesions, april, bruising - Medication Medications: Active Medications Generic Name Dose Route Start Last Admin Trade Name Freq PRN Reason Stop Dose Admin Albuterol/Ipratropium 3 ml 05/04/19 07:00 05/04/19 19:00 Duoneb NEB 3 ml [id number] GRISELDA Administration Arformoterol Tartrate 15 mcg 05/04/19 06:30 05/04/19 19:03 Brovana NEB 15 mcg BID-RT GRISELDA Administration Azithromycin 250 mg 05/04/19 09:00 05/04/19 08:26 Zithromax PO 05/07/19 09:01 250 mg DAILY GRISELDA Administration Enoxaparin Sodium 40 mg 05/04/19 09:00 05/04/19 08:26 Lovenox SC 40 mg 0900 GRISELDA Administration Guaifenesin/Dextromethorphan 15 ml 05/03/19 21:52 05/03/19 23:36 Robitussin Dm PO 15 ml Q4H PRN Administration Cough Methylprednisolone Sodium Succinate 60 mg 05/03/19 22:00 05/04/19 13:21 Solu-Medrol IVP 60 mg Q8HR GRISELDA Administration Nicotine 14 mg 05/03/19 22:00 05/03/19 23:36 Nicoderm Patch TD 14 mg Q24HR GRISELDA Administration Pantoprazole Sodium 40 mg 05/04/19 09:00 05/04/19 08:26 Protonix PO 40 mg DAILY GRISELDA Administration Polyethylene Glycol 17 gm 05/04/19 09:00 05/04/19 08:26 Miralax PO 17 gm DAILY GRISELDA Administration - Exam General Appearance: awake alert Eye: anicteric sclera ENT: normocephalic atraumatic Neck: supple, symmetric, no thyromegaly, no lymphadenopathy Heart: RRR, no gallops, no rubs, normal peripheral pulses Respiratory: wheezes Gastrointestinal: soft, non-tender, non-distended, normal bowel sounds Extremities: no cyanosis Musculoskeletal: normal tone Psychiatric: A&O x 3 Psychiatric - other findings: appears anxious Hosp A/P - Plan Assessment/Plan: # COPD exacerbation - Flu swab negative for influenza. Continue oxygen, IV steroids, IV antibiotics and bronchodilators. # HLD - resume home meds once clarified # Peripheral vascular disease - stable # tobacco abuse - continue nicotine replacement therapy Transfer to medical floor.
--- NOTE | 2019-05-04 20:14 | CON ---
DATE OF CONSULTATION: HISTORY OF PRESENT ILLNESS: Ms. Yee is a very pleasant 53-year-old female. She presents with 2-1/2 days of shortness of breath, started 2:30 in the morning a couple of days back. She does have chronic obstructive pulmonary disease. She had fever. She was around a friend who had a viral illness. It sounds like, but was blaming it on allergies. She presented with severe respiratory distress, but she says she has improved dramatically since admission. PAST MEDICAL HISTORY: Remarkable for COPD. She has a nebulizer at home, but she did not use because her medications were out of date. I have explained to her that she could have used the medications, and this may have helped at least still somebody gathered to get her to the hospital. She is on Anoro and albuterol inhaler. She only has lipid disorder, this is another problem. PAST SURGICAL HISTORY: Remarkable for back surgery, peripheral vascular surgery, and a bowel resection. FAMILY HISTORY: Negative for lung disease in early age. She still smokes unfortunately a pack a day. She started at age 9. She is not a daily drinker. REVIEW OF SYSTEMS: Ten points otherwise negative. PHYSICAL EXAMINATION: GENERAL: A very pleasant woman, in no distress. She is reclining at 30 degrees and walked in the room. VITAL SIGNS: She is afebrile. Heart rate is 97, respiratory rate is 22, oximetry is 97% on room air, and blood pressure 156/72. HEAD AND NECK: Unremarkable. No cervical lymphadenopathy. LUNGS: Remarkable for diffuse mild wheezes. HEART: Regular rhythm. S1 and S2 are normal. ABDOMEN: Soft and nontender. EXTREMITIES: Without clubbing, cyanosis, or edema. NEUROLOGIC: Nonfocal. LABORATORY DATA: White count 8.3, hemoglobin 13.1, and platelets 163. Electrolytes are normal. Creatinine is 0.7. Blood gas showed a pH of 7.38, CO2 of 45, and PO2 of 80 yesterday afternoon. IMPRESSION: Chronic obstructive pulmonary disease exacerbation. Chest x-ray showed no alveolar infiltrates. It is likely this was triggered by viral illness. Hopefully, she will be home in 24 to 48 hours. Job ID: [id number]
[2019-05-04] MEDS: Guaifenesin DM 100-10/5 ML UDCUP PO PRN (21:33)
[2019-05-04] MEDS: Benzonatate 100 MG CAP PO PRN (22:31)
[2019-05-04] MEDS: Nicotine 14 MG PATCH TD SCH (22:31)
[2019-05-04] MEDS ORDERED: cefTRIAXone\\ROCEPHIN 1 GM in Sodium Chloride 0.9% 100 ML IVPB SCH (23:00)
[2019-05-05] MEDS: methylPREDNISolone Sod Succ/PF 125 MG/2 ML VIAL IVP SCH (05:16)
[2019-05-05] MEDS: Arformoterol 15 MCG/2 ML NEB NEB SCH (06:41)
[2019-05-05] MEDS: Enoxaparin Sodium 40 MG/0.4 ML SYRINGE SC SCH (08:23)
[2019-05-05] MEDS: Polyethylene Glycol 3350 17 GM Packet PO SCH (08:23)
[2019-05-05] MEDS: Azithromycin 250 MG TAB PO SCH (08:23)
[2019-05-05] MEDS: Benzonatate 100 MG CAP PO PRN (09:44)
[2019-05-05 14:11] VITALS: BP 126/77; TEMP 98.3
--- NOTE | 2019-05-05 17:29 | PRG ---
DATE OF SERVICE: 05/05/2019 SERVICE: Pulmonary Medicine. INTERVAL HISTORY: The patient is doing fine from respiratory standpoint. She actually indicates that she has recovered to baseline nearly. She is quite tearful today. She was a little upset that she had to come into the hospital. She has been really well and stayed out of the hospital for a period of about 3 years. Otherwise, she has no specific complaints. She continues to have a cough and is bringing up a little bit of phlegm. She has been able to walk in the hallways without much difficulty and breathing. At this point, she feels safe to get out of here. PHYSICAL EXAMINATION: VITAL SIGNS: Afebrile, pulse 87, blood pressure 122/75, respirations 20, and saturation 97% on room air. GENERAL: The patient is awake and alert, in no apparent distress. LUNGS: There is decreased air entry with a slightly prolonged expiratory phase. Rhonchi are present. Polyphonic wheezing is noted. HEART: Normal rate and regular. ABDOMEN: Soft, nontender, nondistended. Bowel sounds are positive. MUSCULOSKELETAL: No cyanosis or clubbing. There is no pitting in the bilateral lower extremities. NEUROLOGIC: Grossly nonfocal. LABORATORY DATA: WBC 8.3, hemoglobin 13.1, platelets 163,000. PH 7.3, pCO2 of 45, PO2 of 80. Basic metabolic profile is unremarkable. Liver function studies are negative. Troponin is negative x1 and BNP is 17. Urinalysis is negative. All culture results including blood culture x2, respiratory culture, and influenza A and B are unremarkable. IMAGING: Chest x-ray demonstrates no active intrathoracic disease. Lungs are consistent with hyperexpansion. ASSESSMENT: 1. Acute hypoxic respiratory failure, resolved. 2. Chronic obstructive pulmonary disease with acute exacerbation. 3. Influenza prodrome. 4. Neuropathy in the left leg. DISCUSSION AND PLAN: The patient is doing fine from respiratory standpoint. We can continue steroids, nebulized medications, and our antibiotics into the outpatient setting. We will initiate gabapentin to see whether or not this has any significant lasting impact on her neuropathic pain in her left leg. I will have her return to clinic to see me in the outpatient setting as previously directed. Job ID: [id number]
--- NOTE | 2019-05-05 19:14 | DIS ---
DATE OF ADMISSION: 05/03/2019 DATE OF DISCHARGE: 05/05/2019 PRIMARY CARE PROVIDER: Unknown. DISCHARGE DIAGNOSES: 1. Acute hypoxic respiratory failure. 2. Chronic obstructive pulmonary disease exacerbation. 3. Peripheral neuropathy. 4. Tobacco abuse disorder. CONDITION OF PATIENT ON THE DAY OF DISCHARGE: Stable. I assessed Ms. Yee on the day of discharge. She denies any chest pain or shortness of breath. Vital signs are stable. S1 and S2 are heard, regular. Lungs are clear to auscultation bilaterally. DISCHARGE MEDICATIONS: 1. Anoro Ellipta one puff daily. 2. Nicotine 14 mg patch daily. 3. Tessalon 100 mg 3 times a day as needed. 4. Omnicef 300 mg 2 times a day for 1 week. 5. Gabapentin 300 mg at bedtime. 6. Prednisone taper. CONSULTATIONS DURING THIS HOSPITALIZATION: Pulmonology, Dr. Vidales. POST-ACUTE CARE FOLLOWUP: With primary care provider in 3 days. DIET: Regular. ACTIVITY: As tolerated. HOSPITAL COURSE: Ms. Yee is a pleasant 53-year-old lady who was admitted to [facility] on 05/03/2019, for COPD exacerbation. She improved with oxygen, steroids, bronchodilators, and antibiotics. She was seen by Pulmonology Service. She is being discharged home in a stable condition. She reports chronic peripheral neuropathy for which she was taking gabapentin in the past. Gabapentin is being resumed at 300 mg at bedtime and she has been advised to follow up with her primary care provider for management of all her medications including gabapentin. DISCHARGE DESTINATION: Home. TIME SPENT: Total amount of time spent coordinating this discharge: 32 minutes. Job ID: [id number]
--- NOTE | 2019-05-06 03:00 | PQF ---
[employer] Air Surveillance Operator Crystal Reports Winform Viewer DONNA HOWARD FAVIAN BYRD [id number] CLINICAL DOCUMENTATION CLARIFICATION FORM: POST DISCHARGE Addendum to original discharge summary date: ____ Late entry note date: __ DATE: 05/06/19 ATTN: Favian Ni Please exercise your independent, professional judgment in responding to the clarification form. Clinical indicators are provided on the bottom of this form for your review Can you please further clarify if Sepsis is ruled in or ruled out? Sepsis [ ] Ruled in diagnosis [ ] Continue to treat [ ] Resolved [ X ] Ruled out diagnosis [ ] Cannot rule out diagnosis [ ] Other diagnosis [ ] Unable to determine In addition, please specify: Present on Admission (POA): [ ] Yes [ ] No [ ] Unable to determine For continuity of documentation, please document condition throughout progress notes and discharge summary. Thank You. CLINICAL INDICATORS - SIGNS / SYMPTOMS / LABS H and P pg.1- shortness of breath H and P pg.1- reports fever H and P pg.3- Lab result WBC 11.0H H and P pg.4- Sepsis secondary to COPD exacerbation with leukocytosis PN 05/05 pg.1- Acute respiratory failure- Resolved DS pg.1- dmitted for COPD exacerbation RISK FACTORS COPD exacerbation- H and P pg.4 Active Smoker- H and P pg.1 Acute Hypoxic respiratory failure- DS pg.1 TREATMENTS Chest X ray 05/03 Pulmonary Consult- Dr. Vidales Oxygen, steroids, bronchodilators- DS pg.1 Antibiotics- MAR IV fluids- MAR (This form is maintained as a part of the permanent medical record) 2014 [employer]. All Rights Reserved [email or web address]
--- NOTE | 2019-05-06 03:02 | PQF ---
S[employer] Supervisor Pyrotechnic Loading Crystal Reports Winform Viewer DONNA HOWARD FAVIAN BYRD [id number] CLINICAL DOCUMENTATION CLARIFICATION FORM: POST DISCHARGE Addendum to original discharge summary date: ____ Late entry note date: __ DATE: 05/06/19 ATTN: Favian Ni Please exercise your independent, professional judgment in responding to the clarification form. Clinical indicators are provided on the bottom of this form for your review Diagnosis: Acute Hypoxic respiratory failure- DS pg.1 Present on Admission (POA): [ X ] Yes [ ] No [ ] Unable to determine Coding guidelines require hospitals to identify whether a diagnosis was present on admission (POA) or not. To accurately assign the appropriate POA indicator, this information must be clearly documented within the medical record. CLINICAL INDICATORS - SIGNS / SYMPTOMS / LABS H and P pg.1- shortness of breath H and P pg.1- reports fever H and P pg.3- Lab result WBC 11.0H H and P pg.4- Sepsis secondary to COPD exacerbation with leukocytosis PN 05/05 pg.1- Acute respiratory failure- Resolved DS pg.1- dmitted for COPD exacerbation RISK FACTORS: COPD exacerbation- H and P pg.4 Active Smoker- H and P pg.1 TREATMENT: Chest X ray 05/03 Pulmonary Consult- Dr. Vidalse Oxygen, steroids, bronchodilators- DS pg.1 Antibiotics- MAR IV fluids- MAR (This form is maintained as a part of the permanent medical record) 2014 [employer]. All Rights Reserved [email or web address]
== END 2019-05-05 14:05 | disposition home or self-care (01) | DRG 189 ==
LOC: ERS 15:59 → 2NO 23:18 → T4-A 05-04 19:34
PROVIDERS: ADMIT Internal Medicine; ATTEND Internal Medicine
DX: J96.01 Acute respiratory failure with hypoxia (principal); J44.1 Chronic obstructive pulmonary disease with (acute) exacerbation; E78.5 Hyperlipidemia, unspecified; I73.9 Peripheral vascular disease, unspecified; G62.9 Polyneuropathy, unspecified; F17.210 Nicotine dependence, cigarettes, uncomplicated; Z79.51 Long term (current) use of inhaled steroids; Z79.899 Other long term (current) drug therapy; R53.81 Other malaise; M77.9 Enthesopathy, unspecified; I51.89 Other ill-defined heart diseases; R22.42 Localized swelling, mass and lump, left lower limb; Z90.49 Acquired absence of other specified parts of digestive tract; Z88.8 Allergy status to other drugs, medicaments and biological substances
CPT/HCPCS: 36415; 71045; 80048; 80053; 81003; 82805; 83605; 83880; 84484; 85025; 87040; 87070; 87205; 87804; 93005; 94640; 94644; 96365; 96366; 96367; 96375; J0692; J0696; J1650; J2930; J3370; J3475; J3490; J7611; J7620

== ENCOUNTER 2021-12-01 20:47 | Emergency (ER) | payer SELFPAY ==
[~2021-12-01 20:47] MED LIST: Iopamidol-370 76% 500 ML 1 ML ONE
[2021-12-01] MEDS ORDERED: Albuterol Sulfate 2.5 mg/0.5 ml Neb ONE (21:21)
[2021-12-01] MEDS ORDERED: Fentanyl 100 MCG/2 ML VIAL ONE (21:26)
[2021-12-01 21:47] LABS: #Basophils 0.1 thou/uL (0.0-0.2); #Eosinphils 0.2 thou/uL (0.0-0.7); #Lymphocytes 1.7 thou/uL (1.20-3.40); #Neutrophils 8.4 thou/uL (1.40-6.50); %Basophils 0.7 % (0.0-1.0); %Eosinophils 1.8 % (0.0-10.0); %Lymphocytes 14.8 % (21.0-51.0); %Monocytes 8.7 % (0.0-10.0); %Neutrophils 74.1 % (42.0-75.0); Hemoglobin 14.1 g/dL (12.0-16.0); Mean Corpuscular HGB CONC 33.3 g/dL (32.0-36.0); Mean Corpuscular Hemoglobin 29.9 pg (27.0-31.0); Mean Corpuscular Volume 89.9 fL (78.0-98.0); Mean Platelet Volume 9.5 fL (7.4-10.4); Platelet Count 157 thou/uL (130-400); RBC Distribution Width 13.1 % (11.5-14.5); Red Blood Cell (RBC) Count 4.72 mill/uL (4.20-5.40); White Blood Cell (WBC) Count 11.4 thou/uL (4.8-10.8)
[2021-12-01 22:30] LABS: ALT (SGPT) 11 U/L (8-55); AST (SGOT) 16 U/L (5-34); Albumin 4.3 g/dL (3.5-5.0); Alkaline Phosphatase 110 U/L (40-110); Anion Gap 14 mmol/L (10-20); BUN (Urea Nitrogen) 11 mg/dL (9.8-20.1); Bilirubin, Total 0.2 mg/dL (0.2-1.2); Calc. Creatinine Clearance 0 mL/min (70-130); Carbon Dioxide 22 mmol/L (22-29); Chloride 106 mmol/L (98-107); Estimated GFR 102; Globulin 2.9 g/dL (2.4-3.5); Glucose 93 mg/dL (70-105); Lipase 39 U/L (8-78); Potassium 4.3 mmol/L (3.5-5.1); Protein, Total 7.2 g/dL (6.0-8.3); Sodium 138 mmol/L (136-145)
[2021-12-01] MEDS ORDERED: Cefepime 2 GM VIAL ONE (22:35)
[2021-12-01] MEDS ORDERED: Cefepime 1 GM VIAL ONE (22:35)
[2021-12-01] MEDS ORDERED: Vancomycin 1 GM/200 ML BAG ONE (23:42)
[2021-12-02] MEDS ORDERED: diphenhydrAMINE 50 MG CAP ONE (00:55)
== END 2021-12-02 00:49 | disposition home or self-care (01) ==
LOC: ERS 20:47
DX: J44.1 Chronic obstructive pulmonary disease with (acute) exacerbation (principal); R07.81 Pleurodynia; E78.00 Pure hypercholesterolemia, unspecified; F17.210 Nicotine dependence, cigarettes, uncomplicated; Z79.899 Other long term (current) drug therapy
CPT/HCPCS: 36415; 71275; 74177; 80053; 83605; 83690; 84484; 85025; 87040; 87086; 93005; 96361; 96365; 96367; 96375; J0692; J3010; J3370; J7611; Q9967